=== PATIENT | male | born 1970 | race Caucasian/White ===

== ENCOUNTER 2020-09-28 07:37 | Outpatient (REF) | payer MEDICARE, MEDICAID, SELFPAY ==
[2020-09-28 11:11] LABS: Alanine Aminotransferase 16 U/L (0-40); Anion Gap 17 (12-20); Aspartate Amino Transferase 16 U/L (5-37); Blood Urea Nitrogen 8 mg/dL (9-16); Calcium 8.7 mg/dL (8.4-10.2); Carbon Dioxide 23 mmol/L (22-29); Chloride 105 mmol/L (96-108); Cholesterol 176 mg/dL; Estimated Glomerular Filt Rate > 60; Glucose Fasting 78 mg/dL (60-99); HDL Cholesterol 39 mg/dL; LDL Cholesterol Calculated 111 mg/dl; Potassium 3.8 mmol/l (3.3-5.1); Sodium 141 mmol/L (135-145); Triglycerides 134 mg/dL
== END 2020-09-28 07:38 | disposition home or self-care (01) ==
LOC: HO.10HDL 07:37
PROVIDERS: Visit Provider Internal Medicine
DX: E78.5 Hyperlipidemia, unspecified (principal); K21.9 Gastro-esophageal reflux disease without esophagitis; I10 Essential (primary) hypertension
CPT/HCPCS: 80048; 80061; 84450; 84460

== ENCOUNTER 2021-03-27 07:39 | Outpatient (REF) | payer MEDICARE, MEDICAID, SELFPAY ==
[2021-03-27 11:45] LABS: Alanine Aminotransferase 13 U/L (0-40); Anion Gap 14 (12-20); Aspartate Amino Transferase 14 U/L (5-37); Blood Urea Nitrogen 14 mg/dL (9-16); Calcium 9.4 mg/dL (8.4-10.2); Carbon Dioxide 31 mmol/L (22-29); Chloride 105 mmol/L (96-108); Cholesterol 170 mg/dL; Estimated Glomerular Filt Rate > 60; Glucose Fasting 88 mg/dL (60-99); HDL Cholesterol 36 mg/dL; LDL Cholesterol Calculated 98 mg/dl; Potassium 4.5 mmol/L (3.3-5.1); Sodium 145 mmol/L (135-145); Triglycerides 181 mg/dL
== END 2021-03-27 07:40 | disposition home or self-care (01) ==
LOC: HO.HMGCLDS 07:39
PROVIDERS: PCP Internal Medicine; Visit Provider Internal Medicine
DX: E78.5 Hyperlipidemia, unspecified (principal); I10 Essential (primary) hypertension; K21.9 Gastro-esophageal reflux disease without esophagitis
CPT/HCPCS: 36415; 80048; 80061; 84450; 84460

== ENCOUNTER 2021-10-22 07:29 | Outpatient (REF) | payer MEDICARE, MEDICAID, SELFPAY ==
[2021-10-22 12:09] LABS: Alanine Aminotransferase 18 U/L (0-40); Anion Gap 12 (12-20); Aspartate Amino Transferase 16 U/L (5-37); Blood Urea Nitrogen 12 mg/dL (9-16); Calcium 9.5 mg/dL (8.4-10.2); Carbon Dioxide 31 mmol/L (22-29); Chloride 106 mmol/L (96-108); Cholesterol 174 mg/dL; Estimated Glomerular Filt Rate > 60; Glucose Fasting 90 mg/dL (60-99); HDL Cholesterol 42 mg/dL; LDL Cholesterol Calculated 106 mg/dl; Potassium 4.7 mmol/L (3.3-5.1); Sodium 144 mmol/L (135-145); Triglycerides 131 mg/dL
== END 2021-10-22 07:30 | disposition home or self-care (01) ==
LOC: HO.HMGCLDS 07:29
PROVIDERS: PCP Internal Medicine; Visit Provider Internal Medicine
DX: E78.5 Hyperlipidemia, unspecified (principal); I10 Essential (primary) hypertension
CPT/HCPCS: 36415; 80048; 80061; 84450; 84460

== ENCOUNTER → 2022-04-02 13:13 | Outpatient (BNVA) | payer MEDICARE, MEDICAID, SELFPAY | PROVIDERS: PCP Internal Medicine; Referring Provider Internal Medicine; Visit Provider Physician Assistant | DX: Z01.818 Encounter for other preprocedural examination (principal); K21.9 Gastro-esophageal reflux disease without esophagitis | CPT/HCPCS: 99202 ==

== ENCOUNTER 2022-04-08 08:14 | Day surgery (SDC) | payer MEDICARE, MEDICAID, SELFPAY ==
--- NOTE | 2022-04-07 10:47 | P.CONAN_ITS ---
HPI - Anesthesia Eval Consult details Narrative: 51yo M for Colonoscopy PMFSH Active Problems Active Problems: All Active Problems (Updated 04/02/22 @ 14:09 by Carey Hansen PA-C) Encounter for screening colonoscopy (Acute) Intellectual disability (Acute) Schizoaffective disorder, chronic condition (Acute) GERD without esophagitis (Acute) Essential hypertension (Acute) Dyslipidemia (Acute) Family History Family History Father Unknown family medical history Mother Cancer Unknown Substance use disorder Mental health disorder Surgical History Surgical History No pertinent past surgical history Social History Social History Housing: Assisted Living Facility Alcohol intake: never Patient Tobacco Use Status: Never used Tobacco e-Cigarette/Vaping Use: Never Used service: No Current occupational status: [employer] Allergies Allergy/AdvReac Type Severity Reaction Status Date / Time No Known Allergies Allergy Verified 04/02/22 13:29 [No Known Allergies*] Home Medications Medication Instructions Recorded Confirmed Last Taken Type benztropine 0.5 mg tablet 0.5 mg PO BID 10/09/20 10/31/21 Unknown History carbamazepine 200 mg tablet mg PO 10/09/20 10/31/21 Unknown History citalopram 10 mg tablet 10 mg PO DAILY 10/09/20 10/31/21 Unknown History citalopram 20 mg tablet 20 mg PO DAILY 10/09/20 10/31/21 Unknown History clonidine HCl 0.2 mg tablet 0.2 mg PO BID 10/09/20 10/31/21 Unknown History haloperidol 5 mg tablet 5 mg PO BEDTIME 10/09/20 10/31/21 Unknown History trazodone 100 mg tablet 100 mg PO BEDTIME 10/09/20 10/31/21 Unknown History lisinopril 20 mg tablet (Zestril) 20 mg PO DAILY 04/02/22 Unknown History Exam Exam Date and Time: April 07, 2022 1047 Pertinent Lab Results Pertinent Lab Results: Laboratory Tests 10/22/21 07:38 Sodium 144 Potassium 4.7 Chloride 106 Carbon Dioxide 31 H BUN 12 Creatinine 0.87 Assessment and Plan Assessment Anesthesia Assessment: Chart Reviewed
[2022-04-08 08:36] VITALS: BMI 30.2
--- NOTE | 2022-04-08 08:45 | MHC.SHP ---
Pre-Procedural Eval Section A Date of Service: 04/08/22 The patient is an INPATIENT: No Changes since office visit: No Cold of Flu in the past 2 weeks, No New Medical Problems and No Changes in Medication The History & Physical has been completed within 30 days and I have reviewed it.: Yes Section B Chief Complaint: screening Allergies: Allergies Allergy/AdvReac Type Severity Reaction Status Date / Time No Known Allergies Allergy Verified 04/08/22 08:22 [No Known Allergies*] Plan I have reviewed the history and physical and performed a pertinent physical examination on my patient. No changes have occurred unless specified.
--- NOTE | 2022-04-08 08:45 | W.PM.OPN ---
Operative Note Operative Note Date of Service: 04/08/22 Narrative: Pre-op diagnosis: colon cancer screening Post-op diagnosis:?other (Colon polyps, diverticulosis) Procedure: COLONOSCOPY TILL CECUM WITH BIOPSIES, SNARE POLYPECTOMY, SUBMUCOSAL INJECTION AND HEMOCLIP PLACEMENT Consent: Indications for the procedure and potential complications of bleeding, perforation, reaction to medications and missed diagnosis were discussed with the patient's sister and MISSY Viv [phone], over the phone and informed verbal consent was obtained. Instrument: Olympus PCF H 190 L variable stiffness pediatric colonoscope Monitoring: Vital signs and clinical assessment, intermittent blood pressure monitoring, continuous EKG monitoring, Pulse oximetry and Carbon Dioxide monitoring were done throughout the procedure. Colon withdrawl time was 35 minutes. Procedure: The patient was placed in the left lateral decubitis position and pre-procedure medications were administered. After a digital rectal examination of the ano-rectum, the video colonoscope was inserted into the rectum and advanced through the colon to the cecum. The colonoscope was slowly withdrawn in a retrograde panoramic fashion and the colon mucosa was carefully examined including a retroflexed view of the rectum. Findings and interventions are described below. Procedure Difficulty: Without difficulty Findings: Terminal Ileum: Not evaluated Cecum:? A 3-4 mm sessile polyp removed with a cold bx Ascending Colon: A 3-4 mm sessile polyp in the distal AC removed with a cold bx Transverse Colon:? A 4 x 3 cms flat polyp at 70 cms raised with 7 cc of Orise solution and removed with a hot stiff snare.? Margins of polypectomy site were treated with APC and site was marked by oliva ink. Polypectomy site was closed with 3 hemoclips (1 resolution and 2 Ultraclips). Polyp was retrieved with a net. Descending Colon:? Normal Sigmoid Colon:? Moderate diverticulosis Rectum:? Normal Ano-rectum:? Normal Colon preparation:? Good? Impression and Post Procedure Diagnosis: Colonoscopy Findings: Two small and one large polyps removed.? A 4 x 3 cms flat polyp at 70 cms in the transverse colon raised with 7 cc of Orise solution and removed with a hot stiff snare.? Margins of polypectomy site were treated with APC and site was marked by oliva ink. Polypectomy site was closed with 3 hemoclips (1 resolution and 2 Ultraclips). Moderate diverticulosis seen in the sigmoid colon Plan: Await pathology results Patient has an appointment on 05/12/22 in the [facility] with CRICKET Rousseau. Repeat Colonoscopy interval based on path results - in 6 months to check polypectomy site if transverse colon polyp is adenomatous and 10 years if polyps are hyperplastic. Needs GA for future colonoscopy since pt had involuntary movements ?related to propafol during the procedure. Colon polyps handout was given in the discharge area. Pt's sister was called to discuss colonoscopy findings and LMTCB. ADDENDUM: Biopsies showed: A.? Cecum, polypectomy:? Clinically polypoid colonic mucosa noted; negative for a hyperplastic or neoplastic process.? B.? Colon, ascending, polypectomy:? Clinically polypoid colonic mucosa noted; negative for a hyperplastic or neoplastic process.? C.? Colon, transverse, polyp at 70 cm, polypectomy with ORISE:? Sessile serrated polyp with low-grade dysplasia, multiple fragments. Letter sent with biopsy results. FU colonoscopy scheduled on 09/19/2022. Surgeon: Alena Lopez MD Anesthesia:?MAC (Dr Rodrigues) Was an Community Services Manager used for this Procedure?:?Yes Community Services Manager:?Annette Reyes Estimated blood loss (mL):?0 Pathology:?other (A. cecal polyp? B. ascending colon polyp? C. transverse colon polyp at 70 cm with Orise) Condition:?stable Disposition:?PACU
--- NOTE | 2022-04-08 08:57 | P.CONAN_ITS ---
[facility] Active Problems Active Problems: All Active Problems (Updated 04/02/22 @ 14:09 by Carey Hansen PA-C) Encounter for screening colonoscopy (Acute) Intellectual disability (Acute) Schizoaffective disorder, chronic condition (Acute) GERD without esophagitis (Acute) Essential hypertension (Acute) Dyslipidemia (Acute) Family History Family History Father Unknown family medical history Mother Cancer Unknown Substance use disorder Mental health disorder Family history of problems with anesthesia: No Surgical History Surgical History No pertinent past surgical history History of Problems with Anesthesia: No Social History Social History Housing: Assisted Living Facility Alcohol intake: never Patient Tobacco Use Status: Never used Tobacco e-Cigarette/Vaping Use: Never Used Use of substances other than those prescribed or required for medical reasons: No Are you DNR?: No Advance Directives: No Advance Directives Information Provided: Yes service: No Current occupational status: disabled Meds Allergies Allergy/AdvReac Type Severity Reaction Status Date / Time No Known Allergies Allergy Verified 04/08/22 08:22 [No Known Allergies*] Active Medications: Current Medications Lactated Ringer's (Lr) 1,000 mls @ 100 mls/hr IVCONT .Q10H ZARIA Home Medications Medication Instructions Recorded Confirmed Last Taken Type benztropine 0.5 mg tablet 0.5 mg PO BID 10/09/20 10/31/21 Unknown History carbamazepine 200 mg tablet mg PO 10/09/20 10/31/21 04/08/22 07:00 History citalopram 10 mg tablet 10 mg PO DAILY 10/09/20 10/31/21 04/08/22 07:00 History citalopram 20 mg tablet 20 mg PO DAILY 10/09/20 10/31/21 04/08/22 07:00 History clonidine HCl 0.2 mg tablet 0.2 mg PO BID 10/09/20 10/31/21 04/08/22 07:00 History haloperidol 5 mg tablet 5 mg PO BEDTIME 10/09/20 10/31/21 04/08/22 07:00 History trazodone 100 mg tablet 100 mg PO BEDTIME 10/09/20 10/31/21 Unknown History lisinopril 20 mg tablet (Zestril) 20 mg PO DAILY 04/02/22 04/08/22 07:00 History Exam Exam Date and Time: April 08, 2022 0857 Height,Weight and Vital Signs: Height 5 ft 8 in Weight 90 kg Airway Mallampati Class: III TM Dist: >3cm Neck ROM: Full Denture: Upper and Lower Heart: rrr Lungs: clear Assessment and Plan Final Anesthetic Review Family History of Problems with Anesthesia: No History of Problems with Anesthesia: No NPO: Yes ASA Class: II Final Preanesthetic Review: No Changes in Pt Med Stat, Meds/Allgs Chart Reviewe d, Consent Obtained/Reviewed and Anes Risks/Benef Reviewed Procedure Risk: Low Anesthetic Plan Anesthetic Plan: MAC: Disposition: Standard PACU
[2022-04-08 09:07] VITALS: BP 148/92; PULSE 95; RESP 18; TEMP 36.2; O2SAT 99
[2022-04-08] MEDS: Lactated Ringers 1,000 ML 100 ML IVCONT (09:09)
[2022-04-08 10:17] VITALS: BP 117/68; PULSE 85; RESP 20; TEMP 36.7; O2SAT 98
[2022-04-08 10:32] VITALS: BP 122/81; PULSE 87; RESP 16; TEMP 36.8; O2SAT 98
== END 2022-04-08 11:00 | disposition home or self-care (01) ==
PROVIDERS: PCP Internal Medicine; Visit Provider Internal Medicine Gastroenterology
PROC: 0DJD8ZZ Inspection of Lower Intestinal Tract, Via Natural or Artificial Opening Endoscopic (ICD-10-PCS; CPT 45378; principal; 2022-04-08 10:00)
DX: Z12.11 Encounter for screening for malignant neoplasm of colon (principal); D12.3 Benign neoplasm of transverse colon; K63.5 Polyp of colon; K57.30 Diverticulosis of large intestine without perforation or abscess without bleeding; K21.9 Gastro-esophageal reflux disease without esophagitis; Z79.899 Other long term (current) drug therapy
CPT/HCPCS: 45385; 45380; 45381; 88305

== ENCOUNTER → 2022-05-12 13:17 | Outpatient (BNVA) | payer MEDICARE, MEDICAID, SELFPAY | PROVIDERS: PCP Internal Medicine; Visit Provider Physician Assistant | DX: K63.5 Polyp of colon (principal); K57.30 Diverticulosis of large intestine without perforation or abscess without bleeding; Z98.890 Other specified postprocedural states | CPT/HCPCS: 99212 ==

== ENCOUNTER 2022-06-26 07:24 | Outpatient (REF) | payer MEDICARE, MEDICAID, SELFPAY ==
[2022-06-26 12:31] LABS: Alanine Aminotransferase 16 U/L (0-40); Anion Gap 18 (12-20); Aspartate Amino Transferase 15 U/L (5-37); Blood Urea Nitrogen 10 mg/dL (9-16); Calcium 9.2 mg/dL (8.4-10.2); Carbon Dioxide 28 mmol/L (22-29); Chloride 100 mmol/L (96-108); Cholesterol 188 mg/dL; Estimated Glomerular Filt Rate > 60; Glucose Fasting 94 mg/dL (60-99); HDL Cholesterol 40 mg/dL; LDL Cholesterol Calculated 126 mg/dl; Potassium 4.7 mmol/L (3.3-5.1); Sodium 141 mmol/L (135-145); Triglycerides 113 mg/dL
== END 2022-06-26 07:25 | disposition home or self-care (01) ==
LOC: HO.HMGCLDS 07:24
PROVIDERS: PCP Internal Medicine; Visit Provider Internal Medicine
DX: E78.5 Hyperlipidemia, unspecified (principal); I10 Essential (primary) hypertension
CPT/HCPCS: 36415; 80048; 80061; 84450; 84460

== ENCOUNTER 2022-07-14 08:51 | Emergency (ER) | payer MEDICARE, MEDICAID, SELFPAY ==
--- NOTE | 2022-07-14 | ECG_ITS ---
Test Reason : TACHY Blood Pressure : / mmHG Vent. Rate : 115 BPM Atrial Rate : 115 BPM P-R Int : 176 ms QRS Dur : 104 ms QT Int : 326 ms P-R-T Axes : 042 -04 021 degrees QTc Int : 450 ms Sinus tachycardia Possible Inferior infarct , age undetermined Abnormal ECG When compared with ECG of 06-DEC-2017 18:05, Heart rate has increased Referred By: Generic ED Physician Electronically Signed By:GAIL LIN
[2022-07-14 10:18] VITALS: BP 143/95; PULSE 126; RESP 18; TEMP 37.5; O2SAT 96; BMI 28.7
[2022-07-14] MEDS: Acetaminophen 325 MG TABLET 650 MG PO (10:26)
[2022-07-14 10:35] LABS: MANUAL DIFF FLAG NO
[2022-07-14 10:42] LABS: COVID-19 Test Positive (Negative); IDNOW Serial# 16C4AD1C
[2022-07-14 10:54] LABS: Basophils Percent Auto 0.4 % (0-2); Eosinophils Absolute Auto 0.2 X10*3/uL (0.0-0.4); Eosinophils Percent Auto 2.2 % (0-4); Hemoglobin 15.8 g/dl (14.0-18.0); Imm Gran Abs Auto 0.01 X10*3/uL (0.00-0.03); Imm Gran Pct Auto 0.1 % (0.0-0.4); Lymphocytes Absolute Auto 0.3 X10*3/uL (1.2-4.9); Lymphocytes Percent Auto 4.7 % (20-40); Mean Corpuscular HGB Conc 33.6 g/dl (31.0-36.0); Mean Corpuscular Hemoglobin 30.6 pg (27.0-33.0); Mean Corpuscular Volume 90.9 fL (80.0-98.0); Mean Platelet Volume 10.7 fL (9.4-12.4); Monocytes Absolute Auto 0.6 X10*3/uL (0.1-1.2); Monocytes Percent Auto 7.7 % (2-11); Neutrophils Absolute Auto 6.1 x10*3/uL (2.0-8.3); Neutrophils Percent Auto 84.9 % (45-73); Platelet Count 175 X10*3/uL (160-400); Red Blood Count 5.17 X10*6/uL (4.60-5.80); Red Cell Distribution Width 11.7 % (11.0-16.0); White Blood Count 7.2 X10*3/uL (4.8-10.8)
[2022-07-14 14:46] LABS: Anion Gap 16 (12-20); Blood Urea Nitrogen 11 mg/dL (9-16); Calcium 9.2 mg/dL (8.4-10.2); Carbon Dioxide 27 mmol/L (22-29); Chloride 104 mmol/L (96-108); Creatinine Clr Calc Pharmacy 126.7; Estimated Glomerular Filt Rate > 60; Glucose Random 99 mg/dL (60-115); Potassium 4.4 mmol/L (3.3-5.1); Sodium 143 mmol/L (135-145)
== END 2022-07-14 19:28 | disposition left against medical advice (07) ==
PROVIDERS: Emergency Provider Emergency Medicine; PCP Internal Medicine
DX: U07.1 COVID-19 (principal); R00.2 Palpitations; I10 Essential (primary) hypertension; E78.5 Hyperlipidemia, unspecified
CPT/HCPCS: 36415; 80048; 85025; 87635; 93005; 99283

== ENCOUNTER 2022-09-19 07:20 | Day surgery (SDC) | payer MEDICARE, MEDICAID, SELFPAY ==
[2022-09-16 13:17] VITALS: BMI 30.5
--- NOTE | 2022-09-18 12:41 | HO.ANESPROP2 ---
Documented by User: Venita Luciano NP 09/18/22 12:42 HPI - Anesthesia Eval Consult details Narrative: 52yo M for Colonoscopy s/p colo 03/2022 with MAC [facility] Active Problems Active Problems: All Active Problems (Updated 09/16/22 @ 12:43 by Siria Díaz, IGNACIA) Encounter for screening colonoscopy (Acute) Colon polyps (Acute) Diverticulosis of colon (Acute) Intellectual disability (Acute) Schizoaffective disorder, chronic condition (Acute) GERD without esophagitis (Acute) Essential hypertension (Acute) Dyslipidemia (Acute) Past Medical History Medical History (Updated 09/19/22 @ 08:15 by Caitie Gross, RN) Adenomatous polyp Diverticulosis Dyslipidemia Essential hypertension GERD without esophagitis Intellectual disability Schizoaffective disorder, chronic condition Seizure Family History Family History Father Unknown family medical history Mother Cancer Unknown Substance use disorder Mental health disorder Family history of problems with anesthesia: No Surgical History Surgical History Hx of colonoscopy No pertinent past surgical history History of Problems with Anesthesia: No Social History Social History Household Members Other:: Senior Living Housing: Assisted Living Facility Are you a primary congregational care pastor to a significant other at home: No Do you presently have visiting nurse or other home services: Yes (Resides in Senior Living) Alcohol intake: never Patient Tobacco Use Status: Never used Tobacco e-Cigarette/Vaping Use: Never Used Use of substances other than those prescribed or required for medical reasons: No Are you DNR?: No Advance Directives: No Advance Directives Information Provided: Yes Advance Directives on File: No service: No Current occupational status: disabled Cognitive needs: No Hearing needs: No Vision needs: Yes Meds Allergies Allergy/AdvReac Type Severity Reaction Status Date / Time No Known Allergies Allergy Verified 09/19/22 08:09 [No Known Allergies*] Home Medications Medication Instructions Recorded Confirmed Last Taken Type carbamazepine 200 mg tablet 200 mg PO BID 10/09/20 09/16/22 04/08/22 07:00 History citalopram 10 mg tablet 10 mg PO DAILY 10/09/20 09/16/22 04/08/22 07:00 History citalopram 20 mg tablet 20 mg PO DAILY 10/09/20 09/16/22 04/08/22 07:00 History clonidine HCl 0.2 mg tablet 0.2 mg PO BID 10/09/20 09/16/22 04/08/22 07:00 History haloperidol 5 mg tablet 5 mg PO BEDTIME 10/09/20 09/16/22 04/08/22 07:00 History trazodone 100 mg tablet 100 mg PO BEDTIME 10/09/20 09/16/22 Unknown History vitamin E (dl, acetate) 180 mg 1 cap PO BID 09/16/22 09/16/22 Unknown History (400 unit) capsule Exam Exam Date and Time: September 18, 2022 1241 Height,Weight and Vital Signs: Height 5 ft 8 in Weight 91.172 kg Pertinent Lab Results Pertinent Lab Results: Laboratory Tests 07/14/22 07/14/22 10:30 14:25 WBC 7.2 Hgb 15.8 Hct 47.0 Plt Count 175 Sodium 143 Potassium 4.4 Chloride 104 Carbon Dioxide 27 BUN 11 Creatinine 0.79 Assessment and Plan Assessment Anesthesia Assessment: Chart Reviewed Final Anesthetic Review Family History of Problems with Anesthesia: No History of Problems with Anesthesia: No Documented by User: Lopez Rai MD 09/19/22 08:17 [facility] Past Medical History Medical History (Updated 09/19/22 @ 08:15 by Caitie Gross, RN) Adenomatous polyp Diverticulosis Dyslipidemia Essential hypertension GERD without esophagitis Intellectual disability Schizoaffective disorder, chronic condition Seizure Family History Family History Father Unknown family medical history Mother Cancer Unknown Substance use disorder Mental health disorder Surgical History Surgical History Hx of colonoscopy No pertinent past surgical history Social History Social History Household Members Other:: Senior Living Housing: Assisted Living Facility Are you a primary congregational care pastor to a significant other at home: No Do you presently have visiting nurse or other home services: Yes (Resides in Senior Living) Alcohol intake: never Patient Tobacco Use Status: Never used Tobacco e-Cigarette/Vaping Use: Never Used Use of substances other than those prescribed or required for medical reasons: No Are you DNR?: No Advance Directives: No Advance Directives Information Provided: Yes Advance Directives on File: No service: No Current occupational status: disabled Cognitive needs: No Hearing needs: No Vision needs: Yes Meds Allergies Allergy/AdvReac Type Severity Reaction Status Date / Time No Known Allergies Allergy Verified 09/19/22 08:09 [No Known Allergies*] Home Medications Medication Instructions Recorded Confirmed Last Taken Type carbamazepine 200 mg tablet 200 mg PO BID 10/09/20 09/16/22 04/08/22 07:00 History citalopram 10 mg tablet 10 mg PO DAILY 10/09/20 09/16/22 04/08/22 07:00 History citalopram 20 mg tablet 20 mg PO DAILY 10/09/20 09/16/22 04/08/22 07:00 History clonidine HCl 0.2 mg tablet 0.2 mg PO BID 10/09/20 09/16/22 04/08/22 07:00 History haloperidol 5 mg tablet 5 mg PO BEDTIME 10/09/20 09/16/22 04/08/22 07:00 History trazodone 100 mg tablet 100 mg PO BEDTIME 10/09/20 09/16/22 Unknown History vitamin E (dl, acetate) 180 mg 1 cap PO BID 09/16/22 09/16/22 Unknown History (400 unit) capsule Exam Airway Mallampati Class: III TM Dist: <=3cm Neck ROM: Full Loose/Missing/Broken Teeth: Yes, Upper and Lower Assessment and Plan Assessment Anesthesia Assessment: Anesthesia Plan Discussed Final Anesthetic Review NPO: Yes ASA Class: III Final Preanesthetic Review: No Changes in Pt Med Stat, Meds/Allgs Chart Reviewed, Consent Obtained/Reviewed and Anes Risks/Benef Reviewed Patient Risk: Intermediate Procedure Risk: Low Anesthetic Plan Anesthetic Plan: MAC: Disposition: Standard PACU
--- NOTE | 2022-09-19 07:24 | MHC.SHP ---
Pre-Procedural Eval Section A Date of Service: 09/19/22 The patient is an INPATIENT: No The History & Physical has been completed within 30 days and I have reviewed it.: No Section B Chief Complaint: Personal history of colonic polyps Details of Present Illness: Colon cancer screening, history of colon polyps Relevant Family History (Specify if Yes): No Relevant Social History: None Present Medications: see Short Stay Collaborative assessment Medical History: Significant History (Dyslipidemia Essential hypertension GERD without esophagitis Intellectual disability Schizoaffective disorder, chronic condition) History of Previous Operations: Relevant previous surgery/procedure and date(s) (History of colonoscopy) Allergies: Allergies Allergy/AdvReac Type Severity Reaction Status Date / Time No Known Allergies Allergy Verified 09/16/22 12:35 [No Known Allergies*] Review of Systems Sugical H&P ROS: Negative: Constitution, Cardiovascular, Respiratory and Gastrointestinal and Yes, Specify: Neurological (developmental delay) Exam Surgical H&P Exam: Normal: Heart, Normal: Lungs, Normal: Extremities and Normal: Abdomen Plan Diagnosis/Plan: Unchanged I have reviewed the history and physical and performed a pertinent physical examination on my patient. No changes have occurred unless specified.
[2022-09-19 07:37] VITALS: BP 153/95; PULSE 90; RESP 16; TEMP 36.7; O2SAT 98
[2022-09-19] MEDS: Lactated Ringers 1,000 ML 100 ML IVCONT (08:07)
--- NOTE | 2022-09-19 08:21 | PM.OP ---
Brief Operative Note Date of Service: 09/19/22 Pre-op diagnosis: Colon cancer screening, history of colon polyp Post-op diagnosis: other (DIVERTICULOSIS, HEMORRHOIDS) Procedure: COLONOSCOPY TO CECUM Surgeon: Alena oLpez MD Anesthesia: MAC Was an Water Resources Project Manager used for this Procedure?: Yes Water Resources Project Manager: Nelson Falcon Estimated blood loss (mL): 0 Pathology: none sent Condition: stable Disposition: PACU
--- NOTE | 2022-09-19 08:38 | W.PM.OPN ---
Operative Note Operative Note Date of Service: 09/19/22 Narrative: Pre-op diagnosis: Colon cancer screening, history of colon polyp Post-op diagnosis:?other ( HEMORRHOIDS) Surgeon: Alena Lopez MD Anesthesia:?MAC COLONOSCOPY TILL CECUM Consent: Indications for the procedure and potential complications of bleeding, perforation, reaction to medications and missed diagnosis were discussed with the patient and informed consent was obtained. Instrument: Olympus PCF H 190 L variable stiffness pediatric colonoscope Monitoring: Vital signs and clinical assessment, intermittent blood pressure monitoring, continuous EKG monitoring, Pulse oximetry and Carbon Dioxide monitoring were done throughout the procedure. Colon withdrawl time was 18 minutes. Procedure: The patient was placed in the left lateral decubitis position and pre-procedure medications were administered. After a digital rectal examination of the ano-rectum, the video colonoscope was inserted into the rectum and advanced through the colon to the cecum. The colonoscope was slowly withdrawn in a retrograde panoramic fashion and the colon mucosa was carefully examined including a retroflexed view of the rectum. Findings and interventions are described below. Procedure Difficulty: Colon was long and there was some loop formation. LLQ pressure applied to intubate the ascending colon Findings: Terminal Ileum: Not evaluated Cecum: Normal Ascending Colon: Normal Transverse Colon: Past polypectomy site was evaluated and no recurrent/residual polyp was visualized Descending Colon: Normal Sigmoid Colon: Mild diverticulosis Rectum: Normal Ano-rectum: Moderate internal hemorrhoids Colon preparation: Good after copious irrigation Impression and Post Procedure Diagnosis: Colonoscopy Findings: No polyps were detected Mild diverticulosis seen in the sigmoid colon Moderate hemorrhoids on retroflexed exam. Plan: Repeat Colonoscopy in 3 years due to a hx of adenomatous colon polyps. (reminder was sent for 3 yr FU colon)
[2022-09-19 09:16] VITALS: BP 121/78; PULSE 80; RESP 18; TEMP 36.4; O2SAT 95
[2022-09-19 09:31] VITALS: BP 132/79; PULSE 75; RESP 15; TEMP 36.6; O2SAT 97
== END 2022-09-19 10:25 | disposition home or self-care (01) ==
PROVIDERS: PCP Internal Medicine; Visit Provider Internal Medicine Gastroenterology
PROC: 0DJD8ZZ Inspection of Lower Intestinal Tract, Via Natural or Artificial Opening Endoscopic (ICD-10-PCS; CPT 45378; principal; 2022-09-19 08:30)
DX: Z12.11 Encounter for screening for malignant neoplasm of colon (principal); Z86.010 Personal history of colon polyps; K57.30 Diverticulosis of large intestine without perforation or abscess without bleeding; K64.8 Other hemorrhoids; E78.5 Hyperlipidemia, unspecified; I10 Essential (primary) hypertension; K21.9 Gastro-esophageal reflux disease without esophagitis; F25.8 Other schizoaffective disorders; F79 Unspecified intellectual disabilities; Z79.899 Other long term (current) drug therapy
CPT/HCPCS: G0105; J2250

== ENCOUNTER 2022-11-13 10:45 | Outpatient (AMB) | payer MEDICARE, MEDICAID, SELFPAY ==
--- NOTE | 2022-11-13 11:18 | MHC.PC.OV ---
Vital Signs 11/13/22 11:23 Height 5 ft 8 in Weight 199 lb BMI 30.2 BP 118/76 Blood Pressure Location Rt brachial Position Sitting Pulse 82 Pulse Source Pulse Oximeter Pulse Oximetry (%) 97 Oxygen Delivery Method Room Air Intake Visit Reasons: PE Intake Note: Pt is here today for his PE Allergies No Known Allergies [No Known Allergies*] Allergy (Verified 11/13/22 11:36) Medication List - Last Reconciled 11/13/[address] MD acetaminophen ER (Tylenol Arthritis Pain) 650 mg PO Q6H PRN carbamazepine 200 mg PO BID citalopram 20 mg PO DAILY citalopram 10 mg PO DAILY clonidine HCl 0.2 mg PO BID guaifenesin 200 mg (5 mL) PO Q4H PRN haloperidol 5 mg PO BEDTIME lisinopril (Zestril) 20 mg PO DAILY simvastatin 40 mg PO DAILY trazodone 100 mg PO BEDTIME vitamin E (dl, acetate) 1 cap PO BID Tobacco use date assessed: 11/13/22 HPI PE HPI Details 53-year-old male with history hypoxic-ischemic encephalopathy, has seizure disorder, and schizoaffective disorder, currently stable and controlled, has history of adenomatous colon polyp, seen on last colonoscopy done in [address] Lopez, has GERD, hypertension and dyslipidemia, here today for his physical exam. He is accompanied by his caregiver, lives in [place] [facility] [place], has no complaints at present time. [facility] Medical History (Updated 12/13/23 @ 02:[address] MD) hypoxic-ischemic encephalopathy Seizure Adenomatous polyp Diverticulosis Intellectual disability Schizoaffective disorder, chronic condition GERD without esophagitis Essential hypertension Dyslipidemia Surgical History Hx of colonoscopy No pertinent past surgical history Family History Father Unknown family medical history Mother Cancer Unknown Substance use disorder Mental health disorder Social History Household Members Other:: Long-Term Housing: Assisted Living Facility Are you a primary director of primary care to a significant other at home: No Do you presently have visiting nurse or other home services: Yes (Resides in [facility]Term) Alcohol intake: never Patient Tobacco Use Status: Never used Tobacco e-Cigarette/Vaping Use: Never Used service: No Current occupational status: disabled Cognitive needs: No Hearing needs: No Vision needs: Yes Questionnaire PHQ-9 Over the last 2 weeks, how often have you been bothered by any of the following problems? 1. Little interest or pleasure in doing things: not at all 2. Feeling down, depressed, or hopeless: not at all 3. Trouble falling or staying asleep, or sleeping too much: not at all 4. Feeling tired or having little energy: not at all 5. Poor appetite or overeating: not at all 6. Feeling bad about yourself - or that you are a failure or have let yourself or your family down: not at all 7. Trouble concentrating on things, such as reading the newspaper or watching television: not at all 8. Moving or speaking so slowly that other people could have noticed. Or the opposite - being so fidgety or restless that you have been moving around a lot more than usual: not at all 9. Thoughts that you would be better off or of hurting yourself in some way: not at all Total score: 0 Depression Screening Interpretation: Negative 04926 - PHQ-9 Billing: Yes Source: Developed by Drs. Brandon Perla, Morena Valencia, Wojciech Vargas and colleagues, with an educational sahara from [employer]. Thrive Questionnaire Date Thrive assessed: 11/13/22 I am a: Patient What is your living situation today?: I have a steady place to live Within the past 12 months, did the food you bought not last and you didn't have the money to get more?: Never true Within the past 12 months, did you worry whether your food would run out before you got money to buy more?: Never true Do you have trouble paying for medicines?: No Do you have trouble getting transportation to medical appointments?: No Do you have trouble paying your heating and electricity bill?: No Do you have trouble taking care of your child, family member or friend?: No Do you have trouble with day-to-day activities such as bathing, preparing meals, shopping, managing finances, etc.?: No Are you currently unemployed and looking for a job?: No Are you interested in more education?: No AUDIT C Alcohol Use Questionnaire (AUDIT-C) 1. How often do you have a drink containing alcohol?: Never Total Score: 0 EM-7 AMB Questionnaire EM-7 Date EM - 7 assessed: 11/13/22 Feeling nervous, anxious, or on edge: 0 = Not at all Not being able to stop or control worryin = Not at all Worrying too much about different things: 0 = Not at all Trouble relaxin = Not at all Being so restless that it is hard to sit still: 0 = Not at all Becoming easily annoyed or irritable: 0 = Not at all Feeling afraid as if something awful might happen: 0 = Not at all Total EM-7 score (0-4 normal; 5-9 mild; 10-14 moderate; 15-21 severe): 0 Source: Developed by Drs. Brandon Perla, Morena Valencia, Wojciech Vargas and colleagues, with an educational sahara from [employer]. EM-7 Assessment Billing EM-7 Assessment Tool: EM-7 Assessment 10489 Review of Systems Const Denies body aches, Denies fever(s), Denies headache(s) and Denies weakness Eyes Denies change in vision ENT Denies dizziness, Denies headache(s) and Denies nasal congestion Card Denies chest pain, Denies lightheadedness and Denies dyspnea Resp Denies cough and Denies dyspnea GI Denies abdominal pain, Denies change in bowel habits and Denies heartburn Denies dysuria, Denies urinary frequency and Denies urinary urgency Musc Reports no additional complaints Skin/Breast Denies lesions and Denies rash Neuro Denies dizziness, Denies headache(s) and Denies weakness Psych Reports no additional complaints Endo Reports no additional complaints Bowen/Lymph Reports no additional complaints Aller/Immun Reports no additional complaints Physical exam (Primary Care) Vital Signs: Last Vital Signs Pulse 82 11/13/22 11:23 BP 118/76 11/13/22 11:23 Pulse Ox 97 11/13/22 11:23 Oxygen Delivery Method Room Air 11/13/22 11:23 BMI result Body Mass Index 30.2 Tobacco/Smoking Status: Tobacco use Status Tobacco use date assessed 11/13/22 11/13/22 11:22 Patient Tobacco Use Status Never used Tobacco 11/13/22 11:20 e-Cigarette/Vaping Use Never Used 11/13/22 11:20 PHQ-9: PHQ-9 Score PHQ-9: Total score 0 11/13/22 11:48 Depression Screening Interpretation: Negative Thrive Assessment: Date of Thrive Assessment Date Thrive assessed 11/13/22 11/13/22 11:32 Const General: comfortable, no acute distress, well developed and alert HENMT Head: Yes normocephalic and Yes atraumatic Ears: EAC's normal General nose exam: Normal external nose present and No nasal discharge present Face and sinus: Yes face symmetric Mouth: Normal oral and palatal mucosa present and moist mucous membranes Eyes General: appearance normal, both eyes and all related structures Neck Neck: Yes full ROM, Yes no lymphadenopathy and Yes supple Thyroid: Thyroid normal Chest Chest palpation & inspection: normal inspection of the chest Resp Effort & Inspection: normal respiratory effort and able to speak in complete sentences Auscultation: clear to auscultation bilaterally Cardio Other: S1-S2 present regular rate and rhythm GI Palpation (GI): Soft to palpation, nontender, no guarding and no masses Auscultation: normal bowel sounds General: Yes no CVA tenderness Male General Exam: Yes normal external exam Penis: normal penis Back/Spine/Pelvis Back: no CVA tenderness and No back tenderness Skin General skin exam: no rashes or lesions noted Neuro General: gait normal, moves all extremities, Normal light touch and pain sensation, no focal motor deficits and CN's II-XI intact bilaterally Extrem General: Yes full ROM, Yes no joint enlargement, Yes no pedal edema, Yes no calf tenderness and Yes normal gait Psych Appearance: grossly normal and well kempt Mental Status: mental status grossly normal Affect: normal affect Attitude: cooperative Thought process: Normal thought process present Assessment and Plan Assessment & Plan (1) Annual visit for general adult medical examination with abnormal findings: Code(s): Z00.01 - Encounter for general adult medical examination with abnormal findings Plan: Will check appropriate labs. Recommended dental visit every 6 months and regular eye exams, at least every 2 years. . Instructed to do self-testicular exam to check for any mass. Up-to-date with his screening colonoscopy, done [address] Lopez with removal of a tubular adenoma. Reminded to get his COVID booster and flu shot, up-to-date with Tdap (2) Essential hypertension: Code(s): I10 - Essential (primary) hypertension Plan: Blood pressure at goal of less than 130/80. Continue with lisinopril 20 mg daily. Reinforced importance of following a low sodium diet, getting regular exercise, and lowering stress levels. (3) Dyslipidemia: Code(s): E78.5 - Hyperlipidemia, unspecified Plan: Fasting lipid panel ordered, continue with current dose of simvastatin 40 mg at bedtime and advised to continue with low-cholesterol diet and getting regular exercise. (4) Schizoaffective disorder, chronic condition: Code(s): F25.9 - Schizoaffective disorder, unspecified Plan: Followed by psychiatry, currently on citalopram, clonidine, and trazodone (5) hypoxic-ischemic encephalopathy: Code(s): P91.60 - Hypoxic ischemic encephalopathy [HIE], unspecified (6) Seizure: Comment: last seizure yrs ago per sister. Code(s): R56.9 - Unspecified convulsions Plan: Currently asymptomatic, last seizure episode was several years ago. Followed by Neurology, continued on carbamazepine 200 mg 1 tab twice a day Orders: Orders Alanine Aminotransferase 11/13/22 I10 - Essential (primary) hypertension, E78.5 - Hyperlipidemia, unspecified, Z00.01 - Encounter for general adult medical examination with abnormal findings Aspartate Amino Transferase 11/13/22 I10 - Essential (primary) hypertension, E78.5 - Hyperlipidemia, unspecified, Z00.01 - Encounter for general adult medical examination with abnormal findings Basic Metabolic Panel Fasting 11/13/22 I10 - Essential (primary) hypertension, E78.5 - Hyperlipidemia, unspecified, Z00.01 - Encounter for general adult medical examination with abnormal findings Lipid Panel 11/13/22 I10 - Essential (primary) hypertension, E78.5 - Hyperlipidemia, unspecified, Z00.01 - Encounter for general adult medical examination with abnormal findings Coding Level of Care Code Est Pt Prev Care 40-64y(37062) Diagnoses Annual visit for general adult medical examination with abnormal findings Z00.01 Essential hypertension I10 Dyslipidemia E78.5 Schizoaffective disorder, chronic condition F25.9 hypoxic-ischemic encephalopathy P91.60 Seizure R56.9 Additional Codes EM-7 Assessment Billing - EM-7 Assessment Tool: EM-7 Assessment 35543 ([id number])
[2022-11-13 11:23] VITALS: BP 118/76; PULSE 82; O2SAT 97; BMI 30.2
== END 2022-11-13 12:00 | disposition home or self-care (01) ==
LOC: HO.HMGC 10:45
PROVIDERS: PCP Internal Medicine; Visit Provider Internal Medicine
DX: Z00.01 Encounter for general adult medical examination with abnormal findings (principal); I10 Essential (primary) hypertension; E78.5 Hyperlipidemia, unspecified; F25.9 Schizoaffective disorder, unspecified; P91.60 Hypoxic ischemic encephalopathy [HIE], unspecified; R56.9 Unspecified convulsions
CPT/HCPCS: 96127; 99499

== ENCOUNTER 2022-12-02 07:49 | Outpatient (REF) | payer MEDICARE, MEDICAID, SELFPAY ==
[2022-12-02 12:01] LABS: Alanine Aminotransferase 16 U/L (0-40); Anion Gap 15 (12-20); Aspartate Amino Transferase 15 U/L (5-37); Blood Urea Nitrogen 11 mg/dL (9-16); Calcium 9.5 mg/dL (8.4-10.2); Carbon Dioxide 30 mmol/L (22-29); Chloride 105 mmol/L (96-108); Cholesterol 180 mg/dL; Estimated Glomerular Filt Rate > 60; Glucose Fasting 91 mg/dL (60-99); HDL Cholesterol 40 mg/dL; LDL Cholesterol Calculated 112 mg/dl; Sodium 145 mmol/L (135-145); Triglycerides 142 mg/dL
== END 2022-12-02 07:50 | disposition home or self-care (01) ==
LOC: HO.HMGCLDS 07:49
PROVIDERS: PCP Internal Medicine; Visit Provider Internal Medicine
DX: Z00.01 Encounter for general adult medical examination with abnormal findings (principal); I10 Essential (primary) hypertension; E78.5 Hyperlipidemia, unspecified
CPT/HCPCS: 36415; 80048; 80061; 84450; 84460

== ENCOUNTER 2022-12-26 18:38 | Emergency (ER) | payer MEDICARE, MEDICAID, SELFPAY ==
--- NOTE | ~2022-12-26 | CT_ITS ---
EXAMINATION: CT HEAD WITHOUT CONTRAST CLINICAL INFORMATION: Fall. COMPARISON: CT head 09/27/2018 TECHNIQUE: Contiguous axial imaging was performed from the skull base to vertex without intravenous administration of contrast. Coronal and sagittal reformatted images are performed at the CT scanner. [This CT examination was performed using dose optimization techniques as appropriate, variously including the following: *Automated exposure control *Adjustment of mA and/or kV according to patient size (this includes techniques or standardized protocols for targeted exams where dose is matched to indication/reason for exam; i.e. extremities or head) *Use of iterative reconstruction technique] DLP: 922 mGy-cm. FINDINGS: There is no evidence of acute intracranial hemorrhage or territorial infarction. No abnormal mass-effect or midline shift is seen. Sainz to white matter differentiation is well preserved. No extra-axial fluid collections are identified. The ventricles are normal in size. There is no abnormal attenuation within the brain parenchyma. There is no osseous abnormality. The mastoid air cells and visualized portions of the paranasal sinuses are well-aerated. CT/CT head/brain wo IV con IMPRESSION: No acute intracranial pathology.
[2022-12-26 18:44] VITALS: BP 127/65; PULSE 71; O2SAT 96
--- NOTE | 2022-12-26 18:46 | ED.GENADULT ---
HPI - General Adult General Chief complaint: Weakness Stated complaint: Weakness/ Diarrhea Time Seen by Provider: 12/26/22 18:42 Source: RN notes reviewed Mode of arrival: EMS History of Present Illness HPI narrative: Patient history of schizoaffective disorder tourettes syndrome intellectual disability from detention had few diarrhea was walking to the bathroom lost balance and fell denies any head injury no signs of injuries nurse aide evaluator was in the same room did not see him hitting the ground. At this time patient back to his normal Related Data Home Medications Medication Instructions Recorded Confirmed carbamazepine 200 mg tablet 200 mg PO BID 10/09/20 09/16/22 citalopram 10 mg tablet 10 mg PO DAILY 10/09/20 09/16/22 citalopram 20 mg tablet 20 mg PO DAILY 10/09/20 09/16/22 clonidine HCl 0.2 mg tablet 0.2 mg PO BID 10/09/20 09/16/22 haloperidol 5 mg tablet 5 mg PO BEDTIME 10/09/20 09/16/22 trazodone 100 mg tablet 100 mg PO BEDTIME 10/09/20 09/16/22 vitamin E (dl, acetate) 180 mg 1 cap PO BID 09/16/22 09/16/22 (400 unit) capsule Previous Rx's Medication Instructions Recorded guaifenesin 200 mg/5 mL oral liquid 200 mg (5 mL) PO Q4H PRN cough 04/16/21 #473 mL acetaminophen 650 mg 650 mg PO Q6H PRN pain #30 tabs 03/22/22 tablet,extended release (Tylenol Arthritis Pain) lisinopril 20 mg tablet (Zestril) 20 mg PO DAILY #30 tabs 10/06/22 simvastatin 40 mg tablet 40 mg PO DAILY #28 tabs 10/06/22 Allergies Allergy/AdvReac Type Severity Reaction Status Date / Time No Known Allergies Allergy Verified 11/13/22 11:36 [No Known Allergies*] Review of Systems Review of Systems: Yes Unobtainable due to mental status PMFSH Past Medical History Medical History Adenomatous polyp Diverticulosis Dyslipidemia Essential hypertension GERD without esophagitis Intellectual disability Schizoaffective disorder, chronic condition Seizure Surgical History Hx of colonoscopy No pertinent past surgical history Family History Family History Father Unknown family medical history Mother Cancer Unknown Substance use disorder Mental health disorder Social History Social History Household Members Other:: [facility] Housing: [facility] Living Facility Are you a primary child care education coordinator to a significant other at home: No Do you presently have visiting nurse or other home services: Yes (Resides in [facility]) Alcohol intake: never Patient Tobacco Use Status: Never used Tobacco Smoked in Last 30 Days: No e-Cigarette/Vaping Use: Never Used Use of substances other than those prescribed or required for medical reasons: No Advance Directives: No Advance Directives Information Provided: Yes service: No Current occupational status: disabled Cognitive needs: No Hearing needs: No Vision needs: Yes Physical Exam ED Vital Signs: Vital Signs - 24 hr 12/26/22 19:04 12/26/22 21:51 Temperature 98.6 F 99.0 F Pulse Rate 73 93 Respiratory Rate 16 16 Blood Pressure 128/77 138/88 Pulse Oximetry 96 95 Oxygen Delivery Method Room Air Room Air BMI result Body Mass Index 31.0 Appearance: Alert. And awake at baseline No acute distress. Eyes: Twitching movements of upper eyelid ENT: Pharynx normal. Oral Mucosa moist Neck: Normal inspection. Neck supple. CVS: Normal heart rate and rhythm. Pulses normal. Respiratory: No respiratory distress. Equal air entry bilateral, no wheezing/rales/rhonchi Abdomen: Soft and nontender. Bowel sounds are present, no mass palpable, no CVA tenderness Skin: Skin warm and dry. Normal skin color. Normal skin turgor. Extremities: No lower extremity edema. No calf tenderness Neuro: Alert and awake at baseline No motor deficit. No sensory deficit.No cerebellar signs , cranial nerves II-XII intact ambulating steady gait Medications Administered Discontinued Medications Generic Name Dose Route Start Last Admin Trade Name Freq PRN Reason Stop Dose Admin Sodium Chloride 1,000 mls @ 999 mls/hr 12/26/22 19:06 12/26/22 21:25 Ns IV 12/26/22 20:06 Infused .Q1H1M ONE Infusion Medical Decision Making Medical Decision Making [facility] Narrative: Patient at his baseline now no bowel movements in the ER walking unsteady gait workup negative will discharge patient back to [facility] Lab Data [facility] Lab Attestation statement: I reviewed the patient's lab results. 12/26/22 19:15 12/26/22 19:15 Labs: Lab Results 12/26/22 12/26/22 12/26/22 Range/Units 19:15 19:15 19:15 WBC 11.6 H (4.8-10.8) X10*3/uL RBC 4.93 (4.60-5.80) X10*6/uL Hgb 15.2 (14.0-18.0) g/dl Hct 43.9 (42.0-52.0) % MCV 89.0 (80.0-98.0) fL MCH 30.8 (27.0-33.0) pg MCHC 34.6 (31.0-36.0) g/dl RDW 11.5 (11.0-16.0) % Plt Count 203 (160-400) X10*3/uL MPV 10.3 (9.4-12.4) fL Immature Gran % (Auto) 0.4 (0.0-0.4) % Neut % (Auto) 85.6 H (45-73) % Lymph % (Auto) 6.5 L (20-40) % Ransom % (Auto) 5.7 (2-11) % Eos % (Auto) 1.6 (0-4) % Baso % (Auto) 0.2 (0-2) % Lymph # (Auto) 0.8 L (1.2-4.9) X10*3/uL Ransom # (Auto) 0.7 (0.1-1.2) X10*3/uL Eos # (Auto) 0.2 (0.0-0.4) X10*3/uL Baso # (Auto) 0.0 (0.0-0.2) X10*3/uL Abs Immat Gran (auto) 0.05 H (0.00-0.03) X10*3/uL Absolute Neuts (auto) 10.0 H (2.0-8.3) x10*3/uL Absolute Nucleated RBC 0.000 (0.0-0.012) X10*3/uL Nucleated RBC % (auto) 0.0 (0.0-0.2) /100WBC Sodium 138 (135-145) mmol/L Potassium 4.6 (3.3-5.1) mmol/L Chloride 104 (96-108) mmol/L Carbon Dioxide 27 (22-29) mmol/L Anion Gap 12 (12-20) BUN 14 (9-16) mg/dL Creatinine 0.83 (0.5-1.4) mg/dL Estim Creat Clear Calc 116.2 Estimated GFR > 60 Random Glucose 123 H (60-115) mg/dL Calcium 8.6 D (8.4-10.2) mg/dL Total Bilirubin 0.7 (0.0-1.0) mg/dL AST 15 (5-37) U/L ALT 16 (0-40) U/L Alkaline Phosphatase 62 (39-117) U/L Total Protein 6.9 (6.5-8.0) g/dL Albumin 4.4 (3.5-5.0) g/dL Lipase 22 (8-78) U/L COVID-19 ([facility]) Negative (Negative) COVID-19 Clin Com See Note Discharge Plan Discharge Clinical Impression: Gastroenteritis, Fall Patient Disposition: Home, Self-Care Instructions: Acute Diarrhea (ED), Fall Prevention (ED) Additional Instructions: Drink plenty of fluids Follow with PCP as needed Prescriptions: No Action acetaminophen [Tylenol Arthritis Pain] 650 mg tablet extended release 650 mg PO Q6H PRN (Reason: pain) Qty: 30 4RF lisinopril [Zestril] 20 mg tablet 20 mg PO DAILY Qty: 30 5RF simvastatin 40 mg tablet 40 mg PO DAILY Qty: 28 5RF vitamin E (dl, acetate) 180 mg (400 unit) capsule 1 cap PO BID haloperidol 5 mg tablet 5 mg PO BEDTIME citalopram 10 mg tablet 10 mg PO DAILY trazodone 100 mg tablet 100 mg PO BEDTIME carbamazepine 200 mg tablet 200 mg PO BID citalopram 20 mg tablet 20 mg PO DAILY clonidine HCl 0.2 mg tablet 0.2 mg PO BID guaifenesin 200 mg/5 mL liquid 200 mg PO Q4H PRN (Reason: cough) Qty: 473 1RF Interventions: ED Discharge Assessment Last Done: 12/26/22 21:52 Discharge Date/Time: 12/26/22 21:54
[2022-12-26 19:04] VITALS: BP 128/77; PULSE 73; RESP 16; TEMP 37; O2SAT 96; BMI 31.0
--- NOTE | 2022-12-26 19:10 | PC.NURSE ---
late entry-this rn assumed care of pt @ 1900. vss. iv placed blood work obtained. pt medicated according to dec. half-way staff member at bedside
[2022-12-26] MEDS: 0.9 % Sodium Chloride 1,000 ML 999 ML IV (19:18)
[2022-12-26 19:21] LABS: MANUAL DIFF FLAG NO
[2022-12-26 19:22] LABS: Basophils Percent Auto 0.2 % (0-2); Eosinophils Absolute Auto 0.2 X10*3/uL (0.0-0.4); Eosinophils Percent Auto 1.6 % (0-4); Hematocrit 43.9 % (42.0-52.0); Hemoglobin 15.2 g/dl (14.0-18.0); Imm Gran Abs Auto 0.05 X10*3/uL (0.00-0.03); Imm Gran Pct Auto 0.4 % (0.0-0.4); Lymphocytes Absolute Auto 0.8 X10*3/uL (1.2-4.9); Lymphocytes Percent Auto 6.5 % (20-40); Mean Corpuscular HGB Conc 34.6 g/dl (31.0-36.0); Mean Corpuscular Hemoglobin 30.8 pg (27.0-33.0); Mean Platelet Volume 10.3 fL (9.4-12.4); Monocytes Absolute Auto 0.7 X10*3/uL (0.1-1.2); Monocytes Percent Auto 5.7 % (2-11); Neutrophils Percent Auto 85.6 % (45-73); Platelet Count 203 X10*3/uL (160-400); Red Blood Count 4.93 X10*6/uL (4.60-5.80); Red Cell Distribution Width 11.5 % (11.0-16.0); White Blood Count 11.6 X10*3/uL (4.8-10.8)
[2022-12-26 19:36] LABS: Alanine Aminotransferase 16 U/L (0-40); Albumin Level 4.4 g/dL (3.5-5.0); Alkaline Phosphatase 62 U/L (39-117); Anion Gap 12 (12-20); Aspartate Amino Transferase 15 U/L (5-37); Bilirubin Total 0.7 mg/dL (0.0-1.0); Blood Urea Nitrogen 14 mg/dL (9-16); Calcium 8.6 mg/dL (8.4-10.2); Carbon Dioxide 27 mmol/L (22-29); Chloride 104 mmol/L (96-108); Creatinine Clr Calc Pharmacy 116.2; Estimated Glomerular Filt Rate > 60; Glucose Random 123 mg/dL (60-115); Lipase 22 U/L (8-78); Potassium 4.6 mmol/L (3.3-5.1); Sodium 138 mmol/L (135-145); Total Protein 6.9 g/dL (6.5-8.0)
[2022-12-26 19:39] LABS: COVID-19 Test Negative (Negative); IDNOW Serial# BCCEAD1C
--- NOTE | 2022-12-26 21:26 | PC.NURSE ---
this rn and vibrating screed operator ambulated pt with standby assist per dr mcdonald order. pt tolerated well. steady on feet. pt positioned back to bed. dr mcdonald made aware
[2022-12-26 21:51] VITALS: BP 138/88; PULSE 93; RESP 16; TEMP 37.2; O2SAT 95
--- NOTE | 2022-12-26 21:53 | PC.NURSE ---
pt ambulatory at discharge. iv removed at discharge. vss. discharge packet provided to half-way staff. half-way staff verbalized understanding of discharge plan
== END 2022-12-26 21:54 | disposition home or self-care (01) ==
PROVIDERS: Emergency Provider Internal Medicine
DX: Z04.3 Encounter for examination and observation following other accident (principal); K52.9 Noninfective gastroenteritis and colitis, unspecified; F95.2 Tourette's disorder; F25.9 Schizoaffective disorder, unspecified; Z20.822 Contact with and (suspected) exposure to COVID-19; R53.1 Weakness; F79 Unspecified intellectual disabilities
CPT/HCPCS: 70450; 80053; 83690; 85025; 87635; 96360; 96361; 99284

== ENCOUNTER 2024-05-09 09:15 | Outpatient (AMB) | payer MEDICARE, MEDICAID, SELFPAY ==
--- NOTE | 2024-05-09 09:27 | MHC.PC.OV ---
Vital Signs 05/09/24 09:55 Height 5 ft 10 in Weight 201 lb BMI 28.8 BP 122/72 Blood Pressure Location Rt brachial Position Sitting Pulse 79 Pulse Source Pulse Oximeter Pulse Oximetry (%) 97 Oxygen Delivery Method Room Air Intake Visit Reasons: PE Intake Note: Pt is here today for his PE: Last colonoscopy 09/19/22 Allergies No Known Allergies [No Known Allergies*] Allergy (Verified 05/09/24 10:26) Medication List - Last Reconciled 05/09/[address] MD acetaminophen ER (Tylenol Arthritis Pain) 650 mg PO Q6H PRN carbamazepine 200 mg PO BID citalopram 20 mg PO DAILY citalopram 10 mg PO DAILY clonidine HCl 0.2 mg PO BID guaifenesin 200 mg (5 mL) PO Q4H PRN haloperidol 5 mg PO BEDTIME lisinopril (Zestril) 20 mg PO DAILY simvastatin 40 mg PO DAILY trazodone 100 mg PO BEDTIME vitamin E (dl, acetate) 1 cap PO BID Tobacco use date assessed: 05/09/24 Dental Screening Dental Screen Date: 05/09/24 HPI PE HPI Details 53-year-old male with history of hypoxic ischemic encephalopathy, has seizure disorder, history of adenomatous colon polyp,, GERD, hypertension dyslipidemia, here today for his physical exam. He is currently followed for his schizoaffective disorder by Dr. Madrigal, currently controlled on present treatment. He is due for a repeat screening colonoscopy in 2024 due to presence of adenomatous polyp on last screening in 2021.. He is up-to-date with all his vaccines. Blood pressure stable and controlled on present treatment, and fasting lipids are within normal limits, currently taking simvastatin 40 mg daily at bedtime. He has been feeling well, lives in the custodial, no complaints at present time. A form for healthcare proxy was given to them, to be filled out by his sister who is his current guardian. [facility] Medical History hypoxic-ischemic encephalopathy Seizure Adenomatous polyp Diverticulosis Intellectual disability Schizoaffective disorder, chronic condition GERD without esophagitis Essential hypertension Dyslipidemia Surgical History Hx of colonoscopy No pertinent past surgical history Family History Father Unknown family medical history Mother Cancer Unknown Substance use disorder Mental health disorder Social History Household Members Other:: Pen[facility]entiary Housing: Assisted Living Facility Are you a primary wound care center consultant to a significant other at home: No Do you presently have visiting nurse or other home services: Yes (Resides in Penitentiary) Alcohol intake: never Patient Tobacco Use Status: Never used Tobacco e-Cigarette/Vaping Use: Never Used service: No Current occupational status: disabled Cognitive needs: No Hearing needs: No Vision needs: Yes Questionnaire PHQ-9 Over the last 2 weeks, how often have you been bothered by any of the following problems? 1. Little interest or pleasure in doing things: not at all 2. Feeling down, depressed, or hopeless: not at all 3. Trouble falling or staying asleep, or sleeping too much: not at all 4. Feeling tired or having little energy: not at all 5. Poor appetite or overeating: not at all 6. Feeling bad about yourself - or that you are a failure or have let yourself or your family down: not at all 7. Trouble concentrating on things, such as reading the newspaper or watching television: not at all 8. Moving or speaking so slowly that other people could have noticed. Or the opposite - being so fidgety or restless that you have been moving around a lot more than usual: not at all 9. Thoughts that you would be better off or of hurting yourself in some way: not at all Total score: 0 Depression Screening Interpretation: Negative (Currently treated for schizoaffective disorder by Dr. Madrigal. ) Depression Screening Done: Yes 71571 - PHQ-9 Billing: Yes Source: Developed by Drs. Brandon Perla, Morena Valencia, Wojciech Vargas and colleagues, with an educational sahara from [employer] Thrive Questionnaire Date Thrive assessed: 05/09/24 I am a: Parent/Caregiver What is your living situation today?: I have a steady place to live Within the past 12 months, did the food you bought not last and you didn't have the money to get more?: I choose not to answer this question Within the past 12 months, did you worry whether your food would run out before you got money to buy more?: I choose not to answer this question Do you have trouble paying for medicines?: I choose not to answer this question Do you have trouble getting transportation to medical appointments?: I choose not to answer this question Do you have trouble paying your heating and electricity bill?: I choose not to answer this question Do you have trouble taking care of your child, family member or friend?: I choose not to answer this question Do you have trouble with day-to-day activities such as bathing, preparing meals, shopping, managing finances, etc.?: I choose not to answer this question Are you currently unemployed and looking for a job?: I choose not to answer this question Are you interested in more education?: I choose not to answer this question Please select the resources that you would like help with: Housing/Senior Living Currently or been in a relationship where the following occur: I choose not to answer THRIVE Score: 0 AUDIT C Alcohol Use Questionnaire (AUDIT-C) 1. How often do you have a drink containing alcohol?: Never Total Score: 0 EM-7 AMB Questionnaire EM-7 Date EM - 7 assessed: 05/09/24 Feeling nervous, anxious, or on edge: 0 = Not at all Not being able to stop or control worryin = Not at all Worrying too much about different things: 0 = Not at all Trouble relaxin = Not at all Being so restless that it is hard to sit still: 0 = Not at all Becoming easily annoyed or irritable: 0 = Not at all Feeling afraid as if something awful might happen: 0 = Not at all Total EM-7 score (0-4 normal; 5-9 mild; 10-14 moderate; 15-21 severe): 0 Source: Developed by Drs. Brandon Perla, Morena Valencia, Wojciech Vargas and colleagues, with an educational sahara from [employer] EM-7 Assessment Billing EM-7 Assessment Tool: EM-7 Assessment 68255 Review of Systems Const Denies body aches, Denies fever(s), Denies headache(s) and Denies weakness Eyes Details: Followed by Dr. Romero once a year Denies change in vision ENT Details: Edentulous Denies dizziness, Denies headache(s) and Denies nasal congestion Card Denies chest pain, Denies lightheadedness and Denies dyspnea Resp Denies cough and Denies dyspnea GI Denies abdominal pain, Denies change in bowel habits and Denies heartburn Denies dysuria, Denies urinary frequency and Denies urinary urgency Musc Reports no additional complaints Skin/Breast Denies lesions and Denies rash Neuro Denies dizziness, Denies headache(s) and Denies weakness Psych Reports no additional complaints Endo Reports no additional complaints Bowen/Lymph Reports no additional complaints Aller/Immun Reports no additional complaints Physical exam (Primary Care) Vital Signs: Last Vital Signs Pulse 79 05/09/24 09:55 BP 122/72 05/09/24 09:55 Pulse Ox 97 05/09/24 09:55 Oxygen Delivery Method Room Air 05/09/24 09:55 BMI result Body Mass Index 28.8 Tobacco/Smoking Status: Tobacco use Status Tobacco use date assessed 05/09/24 05/09/24 09:28 Patient Tobacco Use Status Never used Tobacco 05/09/24 09:28 e-Cigarette/Vaping Use Never Used 05/09/24 09:28 Depression Screening Interpretation: Negative (Currently treated for schizoaffective disorder by Dr. Madrigal. ) Thrive Assessment: Date of Thrive Assessment Date Thrive assessed 05/09/24 05/09/24 09:28 Currently or been in a relationship where the following occur: I choose not to answer Const General: comfortable, no acute distress, well developed and alert [facility] Head: Yes normocephalic and Yes atraumatic Ears: external ears normal and Abnormal EAC present excessive cerumen bilateral General nose exam: Normal external nose present and No nasal discharge present Face and sinus: Yes face symmetric Mouth: Normal oral and palatal mucosa present and moist mucous membranes Teeth and gingiva: other (Edentulous) Eyes General: appearance normal, both eyes and all related structures Neck Neck: Yes full ROM, Yes no lymphadenopathy and Yes supple Thyroid: Thyroid normal Chest Chest palpation & inspection: normal inspection of the chest Resp Effort & Inspection: normal respiratory effort and able to speak in complete sentences Auscultation: clear to auscultation bilaterally Cardio Other: S1-S2 present regular rate and rhythm GI Palpation (GI): Soft to palpation, nontender, no guarding and no masses Auscultation: normal bowel sounds General: Yes no CVA tenderness Male General Exam: Yes normal external exam Penis: normal penis Back/Spine/Pelvis Back: no CVA tenderness and No back tenderness Skin General skin exam: no rashes or lesions noted Neuro General: gait normal, moves all extremities, Normal light touch and pain sensation, no focal motor deficits and CN's II-XI intact bilaterally Extrem General: Yes full ROM, Yes no joint enlargement, Yes no pedal edema, Yes no calf tenderness and Yes normal gait Psych Appearance: grossly normal and well kempt Mental Status: mental status grossly normal Affect: normal affect Attitude: cooperative Thought process: Normal thought process present Assessment and Plan Assessment & Plan (1) Annual visit for general adult medical examination with abnormal findings: Code(s): Z00.01 - Encounter for general adult medical examination with abnormal findings Plan: Will check appropriate labs. He gets regular eye exams with Dr. Romero. Take adequate calcium in diet and vitamin-D 3 at 2000 IU per cap once a day, in addition to weight-bearing exercises to help maintain good muscle tone and weight control. Up-to-date with his vaccinations, and is due for repeat colonoscopy in 2024 due to presence of adenomatous polyp removed on last screening with Dr. Lopez (2) Essential hypertension: Code(s): I10 - Essential (primary) hypertension Plan: Blood pressure at goal of less than 130/80. Continue with lisinopril 20 mg daily. Reinforced importance of following a low sodium diet, getting regular exercise, and lowering stress levels. (3) Dyslipidemia: Code(s): E78.5 - Hyperlipidemia, unspecified Plan: Fasting lipid panel ordered, continue with simvastatin 40 mg at bedtime, and adherence to low-cholesterol diet and getting regular exercise. (4) Advanced directives, counseling/discussion: Code(s): Z71.89 - Other specified counseling Plan: Copy of healthcare proxy form and MOLST form given to patient's caregiver for his sister to complete as she is his guardian Orders: Orders Basic Metabolic Panel Fasting Today E78.5 - Hyperlipidemia, unspecified, I10 - Essential (primary) hypertension, Z00.01 - Encounter for general adult medical examination with abnormal findings Alanine Aminotransferase Today E78.5 - Hyperlipidemia, unspecified, I10 - Essential (primary) hypertension, Z00.01 - Encounter for general adult medical examination with abnormal findings, Z71.89 - Other specified counseling Aspartate Amino Transferase Today E78.5 - Hyperlipidemia, unspecified, I10 - Essential (primary) hypertension, Z00.01 - Encounter for general adult medical examination with abnormal findings, Z71.89 - Other specified counseling Lipid Panel Today E78.5 - Hyperlipidemia, unspecified, I10 - Essential (primary) hypertension, Z00.01 - Encounter for general adult medical examination with abnormal findings, Z71.89 - Other specified counseling Coding Level of Care Code Est Pt Prev Care 40-64y(08650) Diagnoses Annual visit for general adult medical examination with abnormal findings Z00.01 Essential hypertension I10 Dyslipidemia E78.5 Advanced directives, counseling/discussion Z71.89 Additional Codes EM-7 Assessment Billing - EM-7 Assessment Tool: EM-7 Assessment 05574 ([id number])
[2024-05-09 09:55] VITALS: BP 122/72; PULSE 79; O2SAT 97; BMI 28.8
== END 2024-05-09 10:56 | disposition home or self-care (01) ==
PROVIDERS: Visit Provider Internal Medicine
DX: Z00.00 Encounter for general adult medical examination without abnormal findings (principal); I10 Essential (primary) hypertension; E78.5 Hyperlipidemia, unspecified; Z71.89 Other specified counseling
CPT/HCPCS: 99396

== ENCOUNTER 2024-06-03 07:26 | Outpatient (REF) | payer MEDICARE, MEDICAID, SELFPAY ==
[2024-06-03 10:42] LABS: Alanine Aminotransferase 15 U/L (0-40); Anion Gap 10 (12-20); Aspartate Amino Transferase 13 U/L (5-37); Blood Urea Nitrogen 11 mg/dL (9-16); Calcium 9.4 mg/dL (8.4-10.2); Carbon Dioxide 32 mmol/L (22-29); Chloride 104 mmol/L (96-108); Cholesterol 189 mg/dL (<200); Estimated Glomerular Filt Rate > 60; Glucose Fasting 97 mg/dL (60-99); HDL Cholesterol 41 mg/dL (>40); LDL Cholesterol Calculated 123 mg/dL (<100); Potassium 4.8 mmol/L (3.3-5.1); Sodium 141 mmol/L (135-145); Triglycerides 128 mg/dL (<150)
== END 2024-06-03 07:27 | disposition home or self-care (01) ==
LOC: HO.HMGCLDS 07:26
PROVIDERS: PCP Internal Medicine; Visit Provider Internal Medicine
DX: Z00.01 Encounter for general adult medical examination with abnormal findings (principal); I10 Essential (primary) hypertension; E78.5 Hyperlipidemia, unspecified; Z71.89 Other specified counseling
CPT/HCPCS: 36415; 80048; 80061; 84450; 84460

== ENCOUNTER 2025-03-01 11:28 | Outpatient (AMB) | payer MEDICARE, MEDICAID, SELFPAY ==
--- NOTE | 2025-03-01 12:02 | A.OFFPC_ITS ---
Vital Signs 03/01/25 12:03 Height 5 ft 10 in Weight 203 lb BMI 29.1 BP 130/80 Blood Pressure Location Rt brachial Position Sitting Respiration 16 Pulse 82 Pulse Source Pulse Oximeter Temp 98.0 F Temp Source Oral Pulse Oximetry (%) 99 Oxygen Delivery Method Room Air Intake Visit Reasons: possible incontinence Intake Note: Pt is here today c/o frequent urination x2mo. Allergies No Known Allergies [No Known Allergies*] Allergy (Verified 03/01/25 12:34) Medication List - Last Reconciled 03/01/[address] MD acetaminophen ER (Tylenol Arthritis Pain) 650 mg PO Q6H PRN benztropine mg PO carbamazepine 200 mg PO BID citalopram 20 mg PO DAILY citalopram 10 mg PO DAILY clonidine HCl 0.2 mg PO BID guaifenesin 200 mg (5 mL) PO Q4H PRN haloperidol 5 mg PO BEDTIME lisinopril (Zestril) 20 mg PO DAILY simvastatin 40 mg PO DAILY trazodone 100 mg PO BEDTIME vitamin E (dl, acetate) 1 cap PO BID Tobacco use date assessed: 03/01/25 Dental Screening Dental Screen Date: 03/01/25 Did you have a dental visit in the last 12 months?: No Did you have a dental problem in the last 6 months where you did not have access to dental care?: No Was dental information given to patient?: No HPI possible incontinence HPI Details 54-year-old male with history of hyperte nsion dyslipidemia, here today accompanied by caregiver, complaining of urinary frequency and nocturia which has been present now since last 3 months. Denies any accompanying dysuria, no abdominal pain or back pain. Has been compliant with taking his medications, blood pressure stable on present treatment. Due for fasting labs to check lipids and fasting glucose [facility] Medical History (Updated 03/01/25 @ 12:[address] MD) Urinary frequency hypoxic-ischemic encephalopathy Seizure Adenomatous polyp Diverticulosis Intellectual disability Schizoaffective disorder, chronic condition GERD without esophagitis Essential hypertension Dyslipidemia Surgical History Hx of colonoscopy No pertinent past surgical history Family History Father Unknown family medical history Mother Cancer Unknown Substance use disorder Mental health disorder Social History Household Members Other:: Long-Term Housing: Assisted Living Facility Are you a primary child care nurse to a significant other at home: No Do you presently have visiting nurse or other home services: Yes (Resides in Long-Term) Alcohol intake: never Patient Tobacco Use Status: Never used Tobacco e-Cigarette/Vaping Use: Never Used service: No Current occupational status: disabled Cognitive needs: No Hearing needs: No Vision needs: Yes Questionnaire PHQ-9 Over the last 2 weeks, how often have you been bothered by any of the following problems? 1. Little interest or pleasure in doing things: not at all 2. Feeling down, depressed, or hopeless: not at all 3. Trouble falling or staying asleep, or sleeping too much: not at all 4. Feeling tired or having little energy: not at all 5. Poor appetite or overeating: not at all 6. Feeling bad about yourself - or that you are a failure or have let yourself or your family down: not at all 7. Trouble concentrating on things, such as reading the newspaper or watching television: not at all 8. Moving or speaking so slowly that other people could have noticed. Or the opposite - being so fidgety or restless that you have been moving around a lot more than usual: not at all 9. Thoughts that you would be better off or of hurting yourself in some way: not at all Total score: 0 Depression Screening Interpretation: Negative Depression Screening Done: Yes 42270 - PHQ-9 Billing: Yes Source: Developed by Drs. Brandon Perla, Morena Valencia, Wojciech Vargas and colleagues, with an educational sahara from [employer]. Thrive Questionnaire Date Thrive assessed: 03/01/25 I am a: Parent/Caregiver What is your living situation today?: I have a steady place to live Within the past 12 months, did the food you bought not last and you didn't have the money to get more?: Never true Within the past 12 months, did you worry whether your food would run out before you got money to buy more?: Never true Do you have trouble paying for medicines?: No Do you have trouble getting transportation to medical appointments?: No Do you have trouble paying your heating and electricity bill?: No Do you have trouble taking care of your child, family member or friend?: I choose not to answer this question Do you have trouble with day-to-day activities such as bathing, preparing meals, shopping, managing finances, etc.?: No Are you currently unemployed and looking for a job?: No Are you interested in more education?: No Please select the resources that you would like help with: None Currently or been in a relationship where the following occur: No concerns reported THRIVE Score: 0 AUDIT C Alcohol Use Questionnaire (AUDIT-C) 1. How often do you have a drink containing alcohol?: Never Total Score: 0 EM-7 AMB Questionnaire EM-7 Date EM - 7 assessed: 03/01/25 Feeling nervous, anxious, or on edge: 0 = Not at all Not being able to stop or control worryin = Not at all Worrying too much about different things: 0 = Not at all Trouble relaxin = Not at all Being so restless that it is hard to sit still: 0 = Not at all Becoming easily annoyed or irritable: 0 = Not at all Feeling afraid as if something awful might happen: 0 = Not at all Total EM-7 score (0-4 normal; 5-9 mild; 10-14 moderate; 15-21 severe): 0 Source: Developed by Drs. Brandon Perla, Morena Valencia, Wojciech Vargas and colleagues, with an educational sahara from [employer]. Review of Systems Const Denies body aches, Denies fever(s), Denies headache(s) and Denies weakness Eyes Details: Followed by Dr. Romero once a year Denies change in vision ENT Details: Edentulous Denies dizziness, Denies headache(s) and Denies nasal congestion Card Denies chest pain, Denies lightheadedness and Denies dyspnea Resp Denies cough and Denies dyspnea GI Denies abdominal pain, Denies change in bowel habits and Denies heartburn Reports as per HPI Musc Reports no additional complaints Skin/Breast Denies lesions and Denies rash Neuro Denies dizziness, Denies headache(s) and Denies weakness Psych Reports no additional complaints Endo Reports no additional complaints Bowen/Lymph Reports no additional complaints Aller/Immun Reports no additional complaints Physical exam (Primary Care) Vital Signs: Last Vital Signs Temp 98.0 F 03/01/25 12:03 Pulse 82 03/01/25 12:03 Resp 16 03/01/25 12:03 BP 130/80 03/01/25 12:03 Pulse Ox 99 03/01/25 12:03 Oxygen Delivery Method Room Air 03/01/25 12:03 BMI result Body Mass Index 29.1 Tobacco/Smoking Status: Tobacco use Status Tobacco use date assessed 03/01/25 03/01/25 12:06 Patient Tobacco Use Status Never used Tobacco 03/01/25 12:06 e-Cigarette/Vaping Use Never Used 03/01/25 12:06 PHQ-9: PHQ-9 Score PHQ-9: Total score 0 03/01/25 12:18 Depression Screening Interpretation: Negative Thrive Assessment: Date of Thrive Assessment Date Thrive assessed 03/01/25 03/01/25 12:06 Currently or been in a relationship where the following occur: No concerns reported Const General: comfortable, no acute distress, well developed and alert [facility] Head: Yes normocephalic General nose exam: Normal external nose present Face and sinus: Yes face symmetric Mouth: Normal oral and palatal mucosa present and moist mucous membranes Teeth and gingiva: other (Edentulous) Eyes General: appearance normal, both eyes and all related structures Neck Neck: Yes full ROM, Yes no lymphadenopathy and Yes supple Thyroid: Thyroid normal Chest Chest palpation & inspection: normal inspection of the chest Resp Effort & Inspection: normal respiratory effort and able to speak in complete sentences Auscultation: clear to auscultation bilaterally Cardio Other: S1-S2 present regular rate and rhythm GI Palpation (GI): Soft to palpation, nontender, no guarding and no masses Auscultation: normal bowel sounds General: Yes no CVA tenderness Male General Exam: Yes normal external exam Penis: normal penis Back/Spine/Pelvis Back: no CVA tenderness and No back tenderness Neuro General: gait normal, moves all extremities, Normal light touch and pain sensation, no focal motor deficits and CN's II-XI intact bilaterally Extrem General: Yes full ROM, Yes no joint enlargement, Yes no pedal edema, Yes no calf tenderness and Yes normal gait Psych Appearance: grossly normal and well kempt Mental Status: mental status grossly normal Affect: normal affect Attitude: cooperative Thought process: Normal thought process present Results AMB Urinalysis, Automated UA Leukoctes 0 Anabel/uL Last Edit by Lydia Carlson CMA on 03/01/25 12:18 UA Nitrite Negative Last Edit by Lydia Carlson CMA on 03/01/25 12:18 UA Urobilinogen 0.2 mg/dL Last Edit by Lydia Carlson CMA on 03/01/25 12:18 UA Protein 0 mg/dL Last Edit by Lydia Carlson CMA on 03/01/25 12:18 UA pH 6.0 Last Edit by Lydia Carlson, NATHAN on 03/01/25 12:18 UA Blood 0 Sergey/uL Last Edit by Lydia Carlson CMA on 03/01/25 12:18 UA Specific [place] 1.010 Last Edit by Lydia Carlson, NATHAN on 03/01/25 12:18 UA Ketone Negative Last Edit by Lydia Carlson CMA on 03/01/25 12:18 UA Bilirubin 0 mg/dL Last Edit by Lydia Carlson CMA on 03/01/25 12:18 UA Glucose 0 mg/dL Last Edit by Lydia Carlson CMA on 03/01/25 12:18 Results Reviewed Results Reviewed: Laboratory Last Values Urine pH (Auto) 6.0 03/01/25 12:16 Specific [place] (Auto) 1.010 03/01/25 12:16 Urine Protein (Auto) 0 mg/dL 03/01/25 12:16 Glucose (UA)(Auto) 0 mg/dL 03/01/25 12:16 Urine Ketones (Auto) Negative 03/01/25 12:16 Urine Blood (Auto) 0 Sergey/uL 03/01/25 12:16 Urine Nitrite (Auto) Negative 03/01/25 12:16 Urine Bilirubin (Auto) 0 mg/dL 03/01/25 12:16 Urine Urobilinogen (Auto) 0.2 mg/dL 03/01/25 12:16 Leukocyte Esterase (Auto) 0 Anabel/uL 03/01/25 12:16 Coding Level of Care Code Est Pt Level 4 (22773) Diagnoses Dyslipidemia E78.5 Essential hypertension I10 Urinary frequency R35.0 Additional Codes PHQ-9 - 02169 - PHQ-9 Billing: Yes ([id number]) Assessment & Plan Assessment & Plan (1) Dyslipidemia: Code(s): E78.5 - Hyperlipidemia, unspecified Category: Medical Plan: Currently simvastatin 40 mg at bedtime, will check fasting lipid panel, continue adherence to healthy eating habits and getting regular exercise (2) Essential hypertension: Code(s): I10 - Essential (primary) hypertension Category: Medical Plan: Blood pressure at goal of less than 130/80. Continue with current medication. Reinforced importance of following a low sodium diet, getting regular exercise, and lowering stress levels. (3) Urinary frequency: Code(s): R35.0 - Frequency of micturition Category: Medical Plan: Urinalysis showed unremarkable findings, ordered total PSA level Orders: Orders AMB Urinalysis Automated Today Z13.9 - Encounter for screening, unspecified Alanine Aminotransferase Today E78.5 - Hyperlipidemia, unspecified, I10 - Essential (primary) hypertension PSA,Total (Free>4and<10) Today E78.5 - Hyperlipidemia, unspecified, I10 - Essential (primary) hypertension Lipid Panel Today E78.5 - Hyperlipidemia, unspecified, I10 - Essential (primary) hypertension Basic Metabolic Panel Fasting Today E78.5 - Hyperlipidemia, unspecified, I10 - Essential (primary) hypertension Aspartate Amino Transferase Today E78.5 - Hyperlipidemia, unspecified, I10 - Essential (primary) hypertension
[2025-03-01 12:03] VITALS: BP 130/80; PULSE 82; RESP 16; TEMP 36.7; O2SAT 99; BMI 29.1
== END 2025-03-01 13:38 | disposition home or self-care (01) ==
LOC: HO.HMCC 11:28
PROVIDERS: PCP Internal Medicine; Visit Provider Internal Medicine
DX: E78.5 Hyperlipidemia, unspecified (principal); I10 Essential (primary) hypertension; R35.0 Frequency of micturition; Z13.9 Encounter for screening, unspecified

== ENCOUNTER → 2025-03-01 11:28 | Outpatient (BNVA) | payer MEDICARE, MEDICAID, SELFPAY | PROVIDERS: PCP Internal Medicine; Visit Provider Internal Medicine | DX: E78.5 Hyperlipidemia, unspecified (principal); R35.0 Frequency of micturition; I10 Essential (primary) hypertension | CPT/HCPCS: 81003; 96127; 99212 ==

== ENCOUNTER 2025-03-04 07:30 | Outpatient (REF) | payer MEDICARE, MEDICAID, SELFPAY ==
[2025-03-04 11:38] LABS: Alanine Aminotransferase 19 U/L (0-40); Anion Gap 14 (12-20); Aspartate Amino Transferase 22 U/L (5-37); Blood Urea Nitrogen 14 mg/dL (9-16); Calcium 9.3 mg/dL (8.4-10.2); Carbon Dioxide 28 mmol/L (22-29); Chloride 105 mmol/L (96-108); Cholesterol 168 mg/dL (<200); Estimated Glomerular Filt Rate > 60; Glucose Fasting 96 mg/dL (60-99); HDL Cholesterol 37 mg/dL (>40); LDL Cholesterol Calculated 100 mg/dL (<100); Potassium 5.3 mmol/L (3.3-5.1); Sodium 142 mmol/L (135-145); Triglycerides 157 mg/dL (<150)
[2025-03-04 11:58] LABS: PSA,Total (Free>4and<10) 0.36 ng/mL (0.00-4.00)
== END 2025-03-04 07:31 | disposition home or self-care (01) ==
LOC: HO.HMGCLDS 07:30
PROVIDERS: PCP Internal Medicine; Visit Provider Internal Medicine
DX: I10 Essential (primary) hypertension (principal); E78.5 Hyperlipidemia, unspecified; Z12.5 Encounter for screening for malignant neoplasm of prostate
CPT/HCPCS: 36415; 80048; 80061; 84153; 84450; 84460

== ENCOUNTER 2025-06-24 07:48 | Outpatient (REF) | payer MEDICARE, MEDICAID, SELFPAY ==
[2025-06-24 11:47] LABS: Alanine Aminotransferase 20 U/L (0-40); Anion Gap 12 (12-20); Aspartate Amino Transferase 22 U/L (5-37); Blood Urea Nitrogen 10 mg/dL (9-16); Calcium 9.1 mg/dL (8.4-10.2); Carbon Dioxide 31 mmol/L (22-29); Chloride 103 mmol/L (96-108); Cholesterol 191 mg/dL (<200); Estimated Glomerular Filt Rate > 60; HDL Cholesterol 38 mg/dL (>40); Potassium 5.1 mmol/L (3.3-5.1); Sodium 141 mmol/L (135-145); Triglycerides 131 mg/dL (<150)
== END 2025-06-24 07:49 | disposition home or self-care (01) ==
LOC: HO.HMGCLDS 07:48
PROVIDERS: PCP Internal Medicine; Visit Provider Internal Medicine
DX: I10 Essential (primary) hypertension (principal); E78.5 Hyperlipidemia, unspecified
CPT/HCPCS: 36415; 80048; 80061; 84450; 84460

== ENCOUNTER 2025-06-27 12:08 | Outpatient (AMB) | payer MEDICARE, MEDICAID, SELFPAY ==
[2025-06-27 12:38] VITALS: BP 120/80; PULSE 84; RESP 16; TEMP 36.7; O2SAT 98; BMI 29.8
--- NOTE | 2025-06-27 12:38 | A.OFFPC_ITS ---
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 Allergies No Known Allergies (No Known Allergies*) Allergy (Verified 07/02/25 18:26) Medication List - Last Reconciled 06/27/[address] MD acetaminophen ER (Tylenol Arthritis Pain) 650 mg PO Q6H PRN benztropine mg PO carbamazepine (Tegretol) 400 mg (2 x 200 mg) PO BID 90 days citalopram 20 mg PO DAILY citalopram 10 mg PO DAILY clonidine HCl 0.2 mg PO BID haloperidol 5 mg PO BEDTIME lisinopril (Zestril) 20 mg PO DAILY simvastatin 40 mg PO DAILY trazodone 100 mg PO BEDTIME vitamin E (dl, acetate) 1 cap PO BID Tobacco use date assessed: 06/27/25 Dental Screening Dental Screen Date: 06/27/25 Did you have a dental visit in the last 12 months?: No Did you have a dental problem in the last 6 months where you did not have access to dental care?: No Was dental information given to patient?: Patient declined HPI Annual PE HPI Details - The patient is a 54-year-old male pres enting for a physical examination - Essential Hypertension: The patient's blood pressure was initially recorded at 152/80 mmHg but reduced to 120 mmHg after relaxation techniques. He is currently on lisinopril for management. - Hyperlipidemia: The patient's choleste rol levels have increased slightly, with LDL cholesterol rising from 100 to 127 mg/dL. Triglycerides have decreased from 157 to 131 mg/dL. He is on simvastatin for management. - History of adenomatous polyp of colon: The patient has a history of adenomatous polyp and is due for a repeat colonoscopy in 2023. The last colonoscopy was performed in [address] Lopez. [facility] Medical History (Updated 06/27/25 @ 13:[address] MD) History of adenomatous polyp of colon Urinary frequency hypoxic-ischemic encephalopathy Seizure Adenomatous polyp Diverticulosis Intellectual disability Schizoaffective disorder, chronic condition GERD without esophagitis Essential hypertension Dyslipidemia Surgical History Hx of colonoscopy No pertinent past surgical history Family History Father Unknown family medical history Mother Cancer Unknown Substance use disorder Mental health disorder Social History Household Members Other:: [facility] Housing: Assisted Living Facility Are you a primary foster care case manager to a significant other at home: No Do you presently have visiting nurse or other home services: Yes (Resides in [facility]) Alcohol intake: never Patient Tobacco Use Status: Never used Tobacco e-Cigarette/Vaping Use: Never Used service: No Current occupational status: disabled Cognitive needs: No Hearing needs: No Vision needs: Yes Questionnaire PHQ-9 Over the last 2 weeks, how often have you been bothered by any of the following problems? Depression Screening Interpretation: Negative Depression Screening Done: Yes Source: Developed by Drs. Brandon Perla, Morena Valencia, Wojciech Vargas and colleagues, with an educational sahara from [employer]. Thrive Questionnaire Date Thrive assessed: 03/01/25 I am a: Parent/Caregiver What is your living situation today?: I have a steady place to live Within the past 12 months, did the food you bought not last and you didn't have the money to get more?: Never true Within the past 12 months, did you worry whether your food would run out before you got money to buy more?: Never true Do you have trouble paying for medicines?: No Do you have trouble getting transportation to medical appointments?: No Do you have trouble paying your heating and electricity bill?: No Do you have trouble taking care of your child, family member or friend?: I choose not to answer this question Do you have trouble with day-to-day activities such as bathing, preparing meals, shopping, managing finances, etc.?: No Are you currently unemployed and looking for a job?: No Are you interested in more education?: No Please select the resources that you would like help with: None Currently or been in a relationship where the following occur: No concerns reported THRIVE Score: 0 EM-7 AMB Questionnaire EM-7 Date EM - 7 assessed: 03/01/25 Source: Developed by Drs. Brandon Perla, Morena Valencia, Wojciech Vargas and colleagues, with an educational sahara from [employer]. Review of Systems Const Denies body aches, Denies fever(s), Denies headache(s) and Denies weakness Eyes Details: Followed by Dr. Romero once a year Denies change in vision ENT Details: Edentulous Denies dizziness, Denies headache(s) and Denies nasal congestion Card Denies chest pain, Denies lightheadedness and Denies dyspnea Resp Denies cough and Denies dyspnea GI Denies abdominal pain, Denies change in bowel habits and Denies heartburn Reports no additional complaints Musc Reports no additional complaints Skin/Breast Denies lesions and Denies rash Neuro Denies dizziness, Denies headache(s) and Denies weakness Psych Reports no additional complaints Endo Reports no additional complaints Bowen/Lymph Reports no additional complaints Aller/Immun Reports no additional complaints Physical exam (Primary Care) Vital Signs: Last Vital Signs Temp 98.1 F 06/27/25 12:38 Pulse 84 06/27/25 12:38 Resp 16 06/27/25 12:38 BP 120/80 06/27/25 12:38 Pulse Ox 98 06/27/25 12:38 Oxygen Delivery Method Room Air 06/27/25 12:38 BMI result Body Mass Index 29.8 Tobacco/Smoking Status: Tobacco use Status Tobacco use date assessed 06/27/25 06/27/25 12:40 Patient Tobacco Use Status Never used Tobacco 06/27/25 12:39 e-Cigarette/Vaping Use Never Used 06/27/25 12:39 Depression Screening Interpretation: Negative Thrive Assessment: Date of Thrive Assessment Date Thrive assessed 03/01/25 06/27/25 12:39 Currently or been in a relationship where the following occur: No concerns reported Const General: comfortable, no acute distress, well developed and alert HENMS Head: Yes normocephalic General nose exam: Normal external nose present Face and sinus: Yes face symmetric Mouth: Normal oral and palatal mucosa present and moist mucous membranes Teeth and gingiva: other (Edentulous) Eyes General: appearance normal, both eyes and all related structures Neck Neck: Yes full ROM, Yes no lymphadenopathy and Yes supple Thyroid: Thyroid normal Chest Chest palpation & inspection: normal inspection of the chest Resp Effort & Inspection: normal respiratory effort and able to speak in complete sentences Auscultation: clear to auscultation bilaterally Cardio Other: S1-S2 present regular rate and rhythm GI Palpation (GI): Soft to palpation, nontender, no guarding and no masses Auscultation: normal bowel sounds General: Yes no CVA tenderness Male General Exam: Yes normal external exam Penis: normal penis Back/Spine/Pelvis Back: no CVA tenderness and No back tenderness Skin General skin exam: no rashes or lesions noted Neuro General: gait normal, moves all extremities, Normal light touch and pain sensation, no focal motor deficits and CN's II-XI intact bilaterally Extrem General: Yes full ROM, Yes no joint enlargement, Yes no pedal edema, Yes no calf tenderness and Yes normal gait Psych Appearance: grossly normal and well kempt Mental Status: mental status grossly normal Affect: normal affect Attitude: cooperative Results Reviewed Results Reviewed: RUN: 06/27/25 1308 PAGE 1 [facility] [address] [place] [id number] Director Compliance: eRza Arce M.D. Specimen Inquiry Name: Lex Luke Age/Sex: 54/M : 1970 Unit#: [id number] Attend Dr: Mary Street MD Re06/24/25 Status: DEP [facility] Disch: SPEC : [id number] HIREN: 06/24/25 STATUS: COMP REQ : [id number] RECD: 06/24/[address]: Mary Street MD COMP: 06/24/25 ENTERED: 06/24/[address]: ORDERED: Met Prof Fast, AST, ALT, Lipid Panel Test Result Flag Reference Sodium 141 135-145 mmol/L Potassium 5.1 3.3-5.1 mmol/L CL 103 96-108 mmol/L CO2 31 H 22-29 mmol/L Gap 12 12-20 BUN 10 9-16 mg/dL Creat 0.83 0.5-1.4 mg/dL eGFR > 60 Chronic Kidney Disease: Estimated GFR < 60 mL/min/1.73m2 Severe Kidney Disease: Estimated GFR < 15 mL/min/1.73m2 FBS 96 60-99 mg/dL CA 9.1 8.4-10.2 mg/dL AST (GOT) 22 5-37 U/L ALT (GPT) 20 0-40 U/L Triglyceride 131 <150 mg/dL Desirable Triglyceride: less than 150 mg/dL Borderline High Triglyceride 150-199 mg/dL High Triglyceride: 200-499 mg/dL Very High Triglyceride: greater than or equal to 5OO mg/dL Cholesterol 191 <200 mg/dL Desirable Cholesterol: less than 200 mg/dL Borderline High Cholesterol: 200-239 mg/dL High Cholesterol: greater than 239 mg/dL LDL Calculated 127 H <100 mg/dL Desirable LDL: less than 100 mg/dL Near Optimal/Above Optimal LDL: 110-129 mg/dL Borderline High LDL: 130-159 mg/dL High LDL: 160-189 mg/dL Very High LDL: greater than or equal to 190 mg/dL HDL 38 L >40 mg/dL Desirable HDL: greater than 40 mg/dL Note: This HDL assay may give artificially Coding Level of Care Code Est Pt Prev Care 40-64y(94592) Diagnoses Annual visit for general adult medical examination with abnormal findings Z. Essential hypertension I10 Dyslipidemia E78.5 Schizoaffective disorder, chronic condition F25.9 History of adenomatous polyp of colon Z86.0101 Intellectual disability F79 Seizure R56.9 GERD without esophagitis K21.9 Assessment & Plan Assessment & Plan (1) Annual visit for general adult medical examination with abnormal findings: Code(s): Z00. - Encounter for general adult medical examination with abnormal findings Plan: Reviewed recent fasting labs. Reminded to get yearly flu vaccine, COVID booster, referred to GI Clinic for his repeat colonoscopy screening due to history of adenomatous polyps seen on last screening., sees Dr. Romero yearly for his routine eye exam (2) Essential hypertension: Code(s): I10 - Essential (primary) hypertension Category: Medical (3) Dyslipidemia: Code(s): E78.5 - Hyperlipidemia, unspecified Category: Medical (4) Schizoaffective disorder, chronic condition: Code(s): F25.9 - Schizoaffective disorder, unspecified Category: Medical (5) History of adenomatous polyp of colon: Code(s): Z86.0101 - Personal history of adenomatous and serrated colon polyps Category: Medical (6) Intellectual disability: Code(s): F79 - Unspecified intellectual disabilities Category: Medical (7) Seizure: Comment: last seizure yrs ago per sister. Code(s): R56.9 - Unspecified convulsions Category: Medical (8) GERD without esophagitis: Comment: Rare reflux Pepcid p.r.n. Code(s): K21.9 - Gastro-esophageal reflux disease without esophagitis Category: Medical Plan Patient was informed and verbally consented to the use of an ambient scribe for clinic note documentation during this visit. - Essential Hypertension The patient's blood pressure was initially recorded at 152/80 mmHg but reduced to 120 mmHg after relaxation techniques. He is currently on lisinopril for management. Continued monitoring and adherence to medication were advised. -. Hyperlipidemia The patient's cholesterol levels have increased slightly, with LDL cholesterol rising from 100 to 127 mg/dL. Triglycerides have decreased from 157 to 131 mg/dL. He is on simvastatin for management, and dietary monitoring was advised. -. History Of Adenomatous Polyp Of Colon The patient has a history of adenomatous polyp and is due for a repeat colonoscopy in 2023. The last colonoscopy was performed in [address] Lopez. Referred to GI Clinic for a repeat colonoscopy screening him -has been seizure-free for several years now, continued on carbamazepine 400 mg twice a day -currently followed by psychiatry for his schizoaffective disorder, controlled on present treatment Orders: Orders Lipid Panel 12/17/25 E78.5 - Hyperlipidemia, unspecified, I10 - Essential (primary) hypertension, Z00.01 - Encounter for general adult medical examination with abnormal findings Basic Metabolic Panel Fasting 06/27/25 E78.5 - Hyperlipidemia, unspecified, I10 - Essential (primary) hypertension, Z00.01 - Encounter for general adult medical examination with abnormal findings Alanine Aminotransferase 06/27/25 E78.5 - Hyperlipidemia, unspecified, I10 - Essential (primary) hypertension, Z00.01 - Encounter for general adult medical examination with abnormal findings Aspartate Amino Transferase 06/27/25 E78.5 - Hyperlipidemia, unspecified, I10 - Essential (primary) hypertension, Z00.01 - Encounter for general adult medical examination with abnormal findings Referrals Gastroenterology Referral Z86.0101 - Personal history of adenomatous and serrated colon polyps Medications: Refilled simvastatin 40 mg PO DAILY 90 tabs 4RF lisinopril (Zestril) 20 mg PO DAILY 90 tabs 4RF
== END 2025-06-27 13:38 | disposition home or self-care (01) ==
LOC: HO.HMCC 12:10
PROVIDERS: PCP Internal Medicine; Visit Provider Internal Medicine
DX: Z00.01 Encounter for general adult medical examination with abnormal findings (principal); F25.9 Schizoaffective disorder, unspecified; R56.9 Unspecified convulsions; I10 Essential (primary) hypertension; E78.5 Hyperlipidemia, unspecified; Z86.0101 Personal history of adenomatous and serrated colon polyps; F79 Unspecified intellectual disabilities; K21.9 Gastro-esophageal reflux disease without esophagitis

== ENCOUNTER → 2025-06-27 12:08 | Outpatient (BNVA) | payer MEDICARE, MEDICAID, SELFPAY | PROVIDERS: PCP Internal Medicine; Visit Provider Internal Medicine | DX: Z00.01 Encounter for general adult medical examination with abnormal findings (principal); I10 Essential (primary) hypertension; E78.5 Hyperlipidemia, unspecified; F25.9 Schizoaffective disorder, unspecified; F79 Unspecified intellectual disabilities; R56.9 Unspecified convulsions; K21.9 Gastro-esophageal reflux disease without esophagitis; Z86.0101 Personal history of adenomatous and serrated colon polyps | CPT/HCPCS: 99396 ==

== ENCOUNTER 2025-07-19 10:28 | Outpatient (AMB) | payer MEDICARE, MEDICAID, SELFPAY ==
--- NOTE | 2025-07-19 10:30 | MHC.OFFVIS ---
Vital Signs 07/19/25 10:31 Height 5 ft 10 in Weight 201 lb BMI 28.8 BP 139/67 Blood Pressure Location Lt brachial Position Sitting Pulse 80 Pulse Oximetry (%) 96 Oxygen Delivery Method Room Air Intake Visit Reasons: cOLONOSCOPY RECALL 2021 Intake Note: Patient complex follow up for 3 yrs Colonoscopy recall/ last [place] was 2021. Patient cc: swallowing slow due he does not have teeth. 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 Last visit with CRICKET Rangel 05/12/2022 for follow-up after endoscopy. Patient presents for GI care and ongoing colon cancer surveillance following previous colonoscopies with polypectomy, most recently in 2021, which was negative for new polyps. No current gastrointestinal complaints reported. Bowel movements are reportedly regular, one per day, without straining or discomfort. colonoscopy preps were well tolerated with adequate bowel cleansing. Notable history includes family history of unspecified cancer, possibly colon cancer on the maternal side. No personal history of malignancy. Relevant comorbidities include edentulism, which influences dietary texture, but no other conditions impacting GI management are reported or apparent. Patient denies: fever/chills, n/v, appetite changes, pyrosis, regurgitation,dysphasia, unintentional wt loss, ab pain or melena/hematochezia. Social hx: -denies ETOH use -denies recreational drug use -non-smoker - family hx as below -denies personal hx of CA -denies significant cardiopulmonary history -tolerated anesthesia in the past without difficulty. [facility] Medical History (Updated 07/19/25 @ 10:57 by Omayra Aponte CNP) History of adenomatous polyp of colon Urinary frequency hypoxic-ischemic encephalopathy Seizure Adenomatous polyp Diverticulosis Intellectual disability Schizoaffective disorder, chronic condition GERD without esophagitis Essential hypertension Dyslipidemia Surgical History Hx of colonoscopy No pertinent past surgical history Family History Father Unknown family medical history Mother Cancer Unknown Substance use disorder Mental health disorder Social History Household Members Other:: [facility] Housing: Assisted Living Facility Are you a primary inpatient care manager rn to a significant other at home: No Do you presently have visiting nurse or other home services: Yes (Resides in [facility]) Alcohol intake: never Patient Tobacco Use Status: Never used Tobacco e-Cigarette/Vaping Use: Never Used service: No Current occupational status: disabled Cognitive needs: No Hearing needs: No Vision needs: Yes Review of Systems Const Reports as per HPI ENT Reports as per HPI Card Reports as per HPI Resp Reports as per HPI GI Reports as per HPI Reports as per HPI Physical Exam Vital Signs: Last Vital Signs Pulse 80 07/19/25 10:31 BP 139/67 07/19/25 10:31 Pulse Ox 96 07/19/25 10:31 Oxygen Delivery Method Room Air 07/19/25 10:31 BMI result Body Mass Index 28.8 Const General: healthy appearing, no acute distress and well developed Nutritional Appearance: average body habitus Orientation/consciousness: oriented to person and oriented to place HEENT Head: Yes normal to inspection, Yes normocephalic and Yes atraumatic Face and sinus: Yes normal facial exam Eyes General: appearance normal, both eyes and all related structures Neck Neck: Yes normal visual inspection Resp Effort & Inspection: normal respiratory effort, able to speak in complete sentences, no tracheal deviation and symmetric chest movement Cardio Jugular venous distension: no JVD GI Inspection: Yes normal to inspection and No distended Palpation (GI): Soft to palpation, not firm, nontender and No hepatosplenomegaly present Auscultation: normal bowel sounds Neuro General: oriented to person and oriented to place Cognition (Neuro): abnormal cognition (Developmental delay) Gait exam (Neuro): Normal gait present Psych Appearance: grossly normal Mental Status: mental status grossly normal Speech and movement: Normal speech and movement present Affect: normal affect Attitude: cooperative Thought content: Normal thought content present Insight: Limited insight present (Psych) (Developmental delay) Judgement: Limited judgement present (Psych) (Developmental delay) Results Reviewed Results Reviewed: Operative Note Date of Service: 09/19/22 Narrative: Pre-op diagnosis: Colon cancer screening, history of colon polyp Post-op diagnosis: other ( HEMORRHOIDS) Surgeon: Alena Lopez MD Anesthesia: MAC COLONOSCOPY TILL CECUM Procedure: The patient was placed in the left lateral decubitis position and pre-procedure medications were administered. After a digital rectal examination of the ano-rectum, the video colonoscope was inserted into the rectum and advanced through the colon to the cecum. The colonoscope was slowly withdrawn in a retrograde panoramic fashion and the colon mucosa was carefully examined including a retroflexed view of the rectum. Findings and interventions are described below. Procedure Difficulty: Colon was long and there was some loop formation. LLQ pressure applied to intubate the ascending colon Findings: Terminal Ileum: Not evaluated Cecum: Normal Ascending Colon: Normal Transverse Colon: Past polypectomy site was evaluated and no recurrent/residual polyp was visualized Descending Colon: Normal Sigmoid Colon: Mild diverticulosis Rectum: Normal Ano-rectum: Moderate internal hemorrhoids Colon preparation: Good after copious irrigation Impression and Post Procedure Diagnosis: Colonoscopy Findings: No polyps were detected Mild diverticulosis seen in the sigmoid colon Moderate hemorrhoids on retroflexed exam. Plan: Repeat Colonoscopy in 3 years due to a hx of adenomatous colon polyps. (reminder was sent for 3 yr FU colon) Assessment & Plan Assessment & Plan (1) Encounter for screening colonoscopy: Comment: 09/19/22 colonoscopy complete with good prep after copious irrigation- Moderate internal hemorrhoids, diverticulosis. Recommendation for repeat in 3 years due to hx of adenomatous colon polyps Code(s): Z12.11 - Encounter for screening for malignant neoplasm of colon Category: Medical Plan: Multiple prior colonoscopies with polypectomy, most recent (2021) negative, due for surveillance screening. - Additional Testing: Colonoscopy scheduled for surveillance (date pending confirmation, likely Aug-Sep) - Medication Management: Continue all home meds as prescribed; review medication timing in relation to procedure and NPO status; none require holding prior to colonoscopy - Lifestyle Recommendations: Follow low-residue/bland diet for 2 days leading up to procedure; avoid raw fruits/veg, seeds, nuts, red meat, beets, corn per prep instructions; adhere closely to clear liquid diet on prep day (acceptable liquids: clear sodas including Diet Coke/Sprite, black coffee if tolerated, Gatorade; avoid red/blue/purple liquids); nothing by mouth 4 hrs prior to procedure - Follow-Up: Routine letter with pathology and follow-up recommendations post-procedure if normal; in-office visit if results abnormal or by patient/guardian request Plan Follow-up after colonoscopy as warranted or sooner if needed Time: I spent a total of 30 minutes on the date of encounter which includes: Preparing to see the patient (reviewed previous documentation, test results and medical history) Performing a medically appropriate exam and/or evaluation Ordering medications, tests, and procedures Documenting clinical information in the health record Medications: New bisacodyl Take per colonoscopy instructions 5 mg PO ONCE 4 tabs 0RF polyethylene glycol 3350 (Miralax) per colonoscopy prep instructions 238 grams PO ONCE 238 grams 0RF Coding Level of Care Code New Pt New Pt Level 3 (88554) Patient Type New Diagnoses Encounter for screening colonoscopy Z12.11
[2025-07-19 10:31] VITALS: BP 139/67; PULSE 80; O2SAT 96; BMI 28.8
== END 2025-07-19 11:13 | disposition home or self-care (01) ==
LOC: HO.HGI 10:29
PROVIDERS: PCP Internal Medicine; Visit Provider Nurse Practitioner Family
DX: Z01.818 Encounter for other preprocedural examination (principal); Z12.11 Encounter for screening for malignant neoplasm of colon
CPT/HCPCS: 99024

== ENCOUNTER → 2025-07-19 10:28 | Outpatient (BNVA) | payer MEDICARE, MEDICAID, SELFPAY | PROVIDERS: PCP Internal Medicine; Visit Provider Nurse Practitioner Family | DX: Z01.818 Encounter for other preprocedural examination (principal) | CPT/HCPCS: 99212 ==

== ENCOUNTER 2025-10-05 09:35 | Outpatient (AMB) | payer MEDICARE, MEDICAID, SELFPAY ==
--- NOTE | 2025-10-05 10:08 | MHC.OFFVIS ---
Intake Visit Reasons: 1 YR Accompanied by: staff member Allergies No Known Allergies (No Known Allergies*) Allergy (Verified 10/05/25 10:12) Medication List - Last Reconciled 10/05/25 by Kateryna Aguayo CNP acetaminophen ER (Tylenol Arthritis Pain) 650 mg PO Q6H PRN benztropine mg PO bisacodyl 5 mg PO ONCE carbamazepine (Tegretol) 400 mg (2 x 200 mg) PO BID 90 days citalopram 20 mg PO DAILY citalopram 10 mg PO DAILY clonidine HCl 0.2 mg PO BID haloperidol 5 mg PO BEDTIME lisinopril (Zestril) 20 mg PO DAILY polyethylene glycol 3350 (Miralax) 238 grams PO ONCE simvastatin 40 mg PO DAILY trazodone 100 mg PO BEDTIME vitamin E (dl, acetate) 1 cap PO BID HPI Comments Details: He was doing okay. He was taking carbamazepine, no medication side effects. No seizures. No falls. Behavior was okay. Sleep was okay. He has encephalopathy, intellectual disability, and a schizoaffective disorder. He carries a diagnosis of seizure disorder and has been on carbamazepine since at least 1997. He has been in a [facility] since around 2011 and no seizures have ever been witnessed. He has some self-reported seizures when he says that his eyes roll up but he can bring them down. The patient is unable to provide any useful information. No generalized tonic-clonic seizures or staring spells or abnormal states have been reported. He does have hallucinations and delusions. He also has some behavior problems. [facility] Medical History (Updated 10/05/25 @ 10:11 by Kateryna Aguayo CNP) History of adenomatous polyp of colon Urinary frequency hypoxic-ischemic encephalopathy Seizure Adenomatous polyp Diverticulosis Intellectual disability Schizoaffective disorder, chronic condition GERD without esophagitis Essential hypertension Dyslipidemia Surgical History Hx of colonoscopy No pertinent past surgical history Family History Father Unknown family medical history Mother Cancer Unknown Substance use disorder Mental health disorder Social History Household Members Other:: Custodial Housing: Assisted Living Facility Are you a primary child care centre director to a significant other at home: No Do you presently have visiting nurse or other home services: Yes (Resides in Custodial) Alcohol intake: never Patient Tobacco Use Status: Never used Tobacco e-Cigarette/Vaping Use: Never Used service: No Current occupational status: disabled Cognitive needs: No Hearing needs: No Vision needs: Yes Review of Systems Const Denies chills, Denies daytime sleepiness, Denies difficulty sleeping, Denies fatigue, Denies fever(s), Denies frequent falls, Denies headache(s), Denies increased appetite, Denies poor appetite, Denies snoring, Denies weakness, Denies weight gain and Denies weight loss Eyes Denies loss of vision ENT Denies vertigo, Denies dizziness, Denies headache(s) and Denies neck pain Card Denies chest pain at rest, Denies chest pain with activity, Denies syncope, Denies leg edema, Denies palpitations, Denies dyspnea and Denies dyspnea on exertion Resp Denies cough, Denies dyspnea, Denies dyspnea on exertion and Denies snoring GI Denies abdominal pain, Denies constipation, Denies heartburn, Denies diarrhea and Denies nausea Denies urinary frequency, Denies urinary incontinence and Denies urinary urgency Musc Denies abnormal gait, Denies back pain, Denies myalgias, Denies arthralgias, Denies neck pain, Denies numbness and Denies tingling Neuro Denies abnormal gait, Denies vertigo, Denies dizziness, Denies syncope, Denies frequent falls, Denies headache(s), Denies lack of coordination, Denies loss of vision, Denies memory loss, Denies numbness, Denies Other visual disturbances, Denies restless legs, Denies seizure-like activity, Denies tingling, Denies paresthesias, Denies tremor(s) and Denies weakness Psych Denies anxiety, Denies depression, Reports auditory hallucinations, Denies memory loss and Reports visual hallucinations Endo Denies fatigue and Denies palpitations Physical Exam Const Other: General Appearance:? normal, in no acute distress. Heart:? S1, S2 normal, no murmurs. Lungs:? clear anteriorly and posteriorly. Musculoskeletal:? normal. Extremities:? no edema. Psych:? alert, cooperative with exam. Neuro Other: Abnormal Neurological Findings:?limited cognitive abilities that limit mental status exam, follows simple commands. Mental Status: alert, limited exam. Cranial Nerves: Pupils are equal, round, and reactive to light. External ocular muscles are intact. Visual long are full, no ptosis. Face is symmetrical, no facial weakness or droop. Facial sensations are normal. Tongue protrudes in midline. Palate elevates symmetrically. Shoulder shrugging is normal Motor Examination: Normal muscle tone, bulk and strength. No atrophy or fasciculations. No drift of the extended upper extremities. DTR 2+. Plantars are flexor. Sensory Exam: Normal light touch, temperature, pinprick, vibration, and joint-position sensations. Rhomberg sign is absent. Coordination: No ataxia. No titubation. Gait Exam: Within normal limits. Extrapyramidal System: No tremor, rigidity with normal facial expressions. No bradykinesia. No bradyphrenia. Normal arm swing and posture. No propulsion or retropulsion. Speech: Normal. Results Reviewed Results Reviewed: EEG 09/29/2018: WNL Assessment & Plan Assessment & Plan (1) hypoxic-ischemic encephalopathy: Code(s): P91.60 - Hypoxic ischemic encephalopathy [HIE], unspecified Category: Medical Qualifiers: Hypoxic ischemic encephalopathy severity: unspecified severity Qualified Code(s): P91.60 - Hypoxic ischemic encephalopathy [HIE], unspecified (2) Seizure disorder: Comment: Caregivers prefer not to taper off carbamazepine Code(s): G40.909 - Epilepsy, unspecified, not intractable, without status epilepticus Category: Medical Plan: Continue carbamazepine 200mg 2 tablets twice a day. Follow up in 1 year or sooner as needed. Plan Caregivers prefer not to taper off carbamazepine. Coding Level of Care Code Est Pt Level 3 (72410) Diagnoses hypoxic-ischemic encephalopathy, unspecified severity P91.60 Hypoxic ischemic encephalopathy severity: unspecified severity Seizure disorder G40.909
== END 2025-10-05 10:17 | disposition home or self-care (01) ==
LOC: HO.HSM 09:36
PROVIDERS: PCP Internal Medicine; Referring Provider Hospitalist; Visit Provider Registered Nurse
DX: P91.60 Hypoxic ischemic encephalopathy [HIE], unspecified (principal); G40.909 Epilepsy, unspecified, not intractable, without status epilepticus
CPT/HCPCS: 99213

== ENCOUNTER → 2025-10-05 09:35 | Outpatient (BNVA) | payer MEDICARE, MEDICAID, SELFPAY | PROVIDERS: PCP Internal Medicine; Referring Provider Hospitalist; Visit Provider Registered Nurse | DX: P91.60 Hypoxic ischemic encephalopathy [HIE], unspecified (principal); G40.909 Epilepsy, unspecified, not intractable, without status epilepticus | CPT/HCPCS: 99212 ==